=== PATIENT | female | born 1960 | race Caucasian/White ===

== ENCOUNTER 2016-07-02 09:52 | Emergency (ER) | payer MEDICAID, OTHER ==
[~2016-07-02 09:52] MED LIST: ASPI81TA63; PRIL20CA; ZOCO20TA
--- NOTE | 2016-07-02 10:30 | EDDOCDS ---
Physician Documentation [facility] Name: Celestina Serna Age: 56 yrs Sex: Female : 1960 Arrival Date: 07/02/2016 Time: 09:52 Bed Triage 2 Private MD: Geraldine Godfrey Ellen Disposition: 07/02/16 10:22 Discharged to Home/Self Care. Impression: Acute pharyngitis. - Condition is Stable. - Discharge Instructions: Pharyngitis. - Prescriptions for lidocaine HCl 2 % Mucous Membrane solution - take 15 milliliter by ORAL route every 3 hours As needed swish, gargle and spit; 150 milliliter. cefdinir 300 mg Oral Capsule - take 1 capsule by ORAL route every 12 hours; 20 capsule. - Medication Reconciliation form. - Follow up: Geraldine Godfrey; When: Call to arrange an appointment; Reason: Wound/Symptom Recheck, Recheck today's complaints, Worsening of conditions, Continuance of care. - Problem is an ongoing problem. - Symptoms are unchanged. Historical: - Allergies: no known allergies; - Home Meds: 1. calcium citrate 250 mg calcium Oral tab 2. One-A-Day Women's Active 18 mg iron- 400 mcg-180 mg oral tab 3. Vitamin B-6 250 mg Oral tab 4. Magnesium Oxide Oral Unknown daily - PMHx: none; - PSHx: foot surgery; shoulder surgery; gastric bypass (2014); - Social history: Smoking status: Patient states former smoker of tobacco. No barriers to communication noted, The patient speaks fluent Yoruba, Speaks appropriately for age. - : The pt / caregiver states he / she is not on anticoagulants. Home medication list is obtained from the patient. - Exposure Risk Screening:: None identified. Vital Signs: 07/02 09:54 BP 153 / 68; Pulse 69; Resp 16; Temp 97.6(O); Pulse Ox 99% on R/A; Weight 73.48 kg / elp 162 lbs (R); Height 5 ft. 7 in. (170.18 cm) (R); 09:54 Body Mass Index 25.37 (73.48 kg, 170.18 cm) elp MDM: 10:01 Strep Screen, Nursing ordered. cc10 10:19 GATS (NEGATIVE STREP SCREEN) Ordered. EDMS Signatures: Dispatcher MedHost EDMS Becka Jo, RN RN Marylou CovarrubiasRN RN Romulo Ag, ZOILA CUMMINGS cc10 MTDD
--- NOTE | 2016-07-02 10:30 | EDDOCDS ---
Nurse's Notes [facility] Name: Celestina Serna Age: 56 yrs Sex: Female : 1960 Arrival Date: 07/02/2016 Time: 09:52 Bed Triage 2 Private MD: Geraldine Godfrey Ellen Diagnosis: Acute pharyngitis Presentation: 07/02 09:59 Presenting complaint: Patient states: concerned she has strep throat. states spots on pml her throat and red tonsils, sore throat - ongoing for 4 days. Risk factors: Stridor is not present. Drooling is not present. Shortness of breath is not present. Cellulitis is not present. Adult Sepsis Screening: The patient does not have new or worsening altered mentation. Patient's respiratory rate is less than 22. Systolic blood pressure is greater than 100. Patient has a qSOFA score of 0- Negative Sepsis Screen. Suicide/Homicide risk assessment- the patient denies having any suicidal and/or homicidal ideations and does not present with any other emotional, behavioral or mental health complaints. 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 Transition of care: patient was not received from another setting of care. 09:59 Acuity: JUAN Level 4 pml 09:59 Method Of Arrival: Walkin/Carried/Asstd pml Triage Assessment: 10:01 General: Appears in no apparent distress, comfortable. Pain: Location: throat Pain pml currently is 7 out of 10 on a pain scale. HIV screening NA for this visit Offered previously. EENT: Reports pain when swallowing. Historical: - Allergies: no known allergies; - Home Meds: 1. calcium citrate 250 mg calcium Oral tab 2. One-A-Day Women's Active 18 mg iron- 400 mcg-180 mg oral tab 3. Vitamin B-6 250 mg Oral tab 4. Magnesium Oxide Oral Unknown daily - PMHx: none; - PSHx: foot surgery; shoulder surgery; gastric bypass (2014); - Social history: Smoking status: Patient states former smoker of tobacco. No barriers to communication noted, The patient speaks fluent Nepalese, Speaks appropriately for age. - : The pt / caregiver states he / she is not on anticoagulants. Home medication list is obtained from the patient. - Exposure Risk Screening:: None identified. Screenin:28 Screening information is obtained from the patient. Fall risk: No risks identified. jjr Assistance ADL's: requires no assistance with activities of daily living. Abuse/DV Screen: The patient / caregiver reports he/she is: not in a situation that causes fear, pain or injury. Nutritional screening: No deficits noted. Advance Directives: There is no active DNR order. home support is adequate. Assessment: 10:28 General: Appears in no apparent distress, Behavior is appropriate for age. EENT: Throat jjr is reddened. Respiratory: Airway is patent Respiratory effort is even, unlabored, Respiratory pattern is regular. Derm: No deficits noted. Vital Signs: 09:54 BP 153 / 68; Pulse 69; Resp 16; Temp 97.6(O); Pulse Ox 99% on R/A; Weight 73.48 kg (R); elp Height 5 ft. 7 in. (170.18 cm) (R); 09:54 Body Mass Index 25.37 (73.48 kg, 170.18 cm) elp Vitals: 09:54 Log In Time: July 02, 2016 at 09:52. elp 10:19 Strep Screen is obtained and tested: Negative, a GATSNEG culture is ordered in [facility] and sent. ED Course: 09:54 Patient visited by Elisabeth Wilde PCA. elp 09:54 Geraldine Godfrey is Private Physician. elp 09:54 Patient moved to Waiting elp 09:54 Patient moved to Pre RCE elp 09:55 Patient visited by Elisabeth Wilde PCA. elp 10:00 Triage Initiated pml 10:01 Patient visited by Marylou Hart RN. pml 10:02 Romulo [facility] cc10 10:02 Jason Omer MD is Attending Physician. cc10 10:03 Patient moved to Triage 2 pml 10:21 Patient visited by Romulo Navarro PA-C. cc10 10:21 Patient visited by Romulo Navarro PA-C. cc10 10:22 Geraldine Godfrey is Referral Physician. cc10 10:29 The patient / caregiver is instructed regarding the plan of care and ED course. jjr 10:29 No IV's were initiated during this patient's visit. No procedures done that require jjr assistance. Order Results: There are currently no results for this order. Outcome: 10:22 Discharge ordered by Provider. cc10 10:29 Discharge Assessment: patient administered narcotics - no. The following High Risk jjr Discharge criteria are identified: None. Discharged to home ambulatory. Condition: stable. Discharge instructions given to patient, Instructed on discharge instructions, follow up and referral plans. medication usage, Demonstrated understanding of instructions, medications, Prescriptions given X 2. No special radiology studies were completed. Property sent home with patient. 10:29 Patient left the ED. jjr Signatures: Becka Jo, RN RN jjr Marylou Hart,RN RN Elisabeth Kellogg, MEDICAID SERVICE COORDINATOR MEDICAID SERVICE COORDINATOR elp Romulo Navarro, PAKleverC PA-C cc10 MTDD
--- NOTE | 2016-07-04 11:30 | EDDOCDS ---
Physician Documentation [facility] Name: Celestina Serna Age: 56 yrs Sex: Female : 1960 Arrival Date: 07/02/2016 Time: 09:52 Bed Triage 2 Private MD: Geraldine Godfrey Ellen Disposition: 07/02/16 10:22 Discharged to Home/Self Care. Impression: Acute pharyngitis. - Condition is Stable. - Discharge Instructions: Pharyngitis. - Prescriptions for lidocaine HCl 2 % Mucous Membrane solution - take 15 milliliter by ORAL route every 3 hours As needed swish, gargle and spit; 150 milliliter. cefdinir 300 mg Oral Capsule - take 1 capsule by ORAL route every 12 hours; 20 capsule. - Medication Reconciliation form. - Follow up: Geraldine Godfrey; When: Call to arrange an appointment; Reason: Wound/Symptom Recheck, Recheck today's complaints, Worsening of conditions, Continuance of care. - Problem is an ongoing problem. - Symptoms are unchanged. Historical: - Allergies: no known allergies; - Home Meds: 1. calcium citrate 250 mg calcium Oral tab 2. One-A-Day Women's Active 18 mg iron- 400 mcg-180 mg oral tab 3. Vitamin B-6 250 mg Oral tab 4. Magnesium Oxide Oral Unknown daily - PMHx: none; - PSHx: foot surgery; shoulder surgery; gastric bypass (2014); - Social history: Smoking status: Patient states former smoker of tobacco. No barriers to communication noted, The patient speaks fluent Ukrainian, Speaks appropriately for age. - : The pt / caregiver states he / she is not on anticoagulants. Home medication list is obtained from the patient. - Exposure Risk Screening:: None identified. Vital Signs: 07/02 09:54 BP 153 / 68; Pulse 69; Resp 16; Temp 97.6(O); Pulse Ox 99% on R/A; Weight 73.48 kg / elp 162 lbs (R); Height 5 ft. 7 in. (170.18 cm) (R); 09:54 Body Mass Index 25.37 (73.48 kg, 170.18 cm) elp MDM: 10:01 Strep Screen, Nursing ordered. cc10 10:19 GATS (NEGATIVE STREP SCREEN) Ordered. EDMS 10:32 Financial registration complete. mm15 10:32 [facility] Payment Agreement was scanned into MEDHOMessageParty and attached to record. mm15 18:46 T-Sheet-- Draft Copy was scanned into [employer]essageParty and attached to record. klr Signatures: Dispatcher MedHost EDBecka Brooks RN RN jjr Quay, Paulina, RN RN pml McGrath, Marlynn mm15 Romulo Navarro PA-C PAMarychuy cc10 Hayley Peñaloza The chart was reviewed and I authenticate all verbal orders and agree with the evaluation and treatment provided.Attachments: 10:32 [facility] Payment Agreement mm15 18:46 T-Sheet-- Draft Copy klr Chart Complete MTDD
--- NOTE | 2016-07-04 11:30 | EDDOCDS ---
Nurse's Notes [facility] Name: Celestina Serna Age: 56 yrs Sex: Female : 1960 Arrival Date: 07/02/2016 Time: 09:52 Bed Triage 2 Private MD: Geraldine Godfrey Ellen Diagnosis: Acute pharyngitis Presentation: 07/02 09:59 Presenting complaint: Patient states: concerned she has strep throat. states spots on pml her throat and red tonsils, sore throat - ongoing for 4 days. Risk factors: Stridor is not present. Drooling is not present. Shortness of breath is not present. Cellulitis is not present. Adult Sepsis Screening: The patient does not have new or worsening altered mentation. Patient's respiratory rate is less than 22. Systolic blood pressure is greater than 100. Patient has a qSOFA score of 0- Negative Sepsis Screen. Suicide/Homicide risk assessment- the patient denies having any suicidal and/or homicidal ideations and does not present with any other emotional, behavioral or mental health complaints. 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 Transition of care: patient was not received from another setting of care. 09:59 Acuity: JUAN Level 4 pml 09:59 Method Of Arrival: Walkin/Carried/Asstd pml Triage Assessment: 10:01 General: Appears in no apparent distress, comfortable. Pain: Location: throat Pain pml currently is 7 out of 10 on a pain scale. HIV screening NA for this visit Offered previously. EENT: Reports pain when swallowing. Historical: - Allergies: no known allergies; - Home Meds: 1. calcium citrate 250 mg calcium Oral tab 2. One-A-Day Women's Active 18 mg iron- 400 mcg-180 mg oral tab 3. Vitamin B-6 250 mg Oral tab 4. Magnesium Oxide Oral Unknown daily - PMHx: none; - PSHx: foot surgery; shoulder surgery; gastric bypass (2014); - Social history: Smoking status: Patient states former smoker of tobacco. No barriers to communication noted, The patient speaks fluent Togolese, Speaks appropriately for age. - : The pt / caregiver states he / she is not on anticoagulants. Home medication list is obtained from the patient. - Exposure Risk Screening:: None identified. Screenin:28 Screening information is obtained from the patient. Fall risk: No risks identified. jjr Assistance ADL's: requires no assistance with activities of daily living. Abuse/DV Screen: The patient / caregiver reports he/she is: not in a situation that causes fear, pain or injury. Nutritional screening: No deficits noted. Advance Directives: There is no active DNR order. home support is adequate. Assessment: 10:28 General: Appears in no apparent distress, Behavior is appropriate for age. EENT: Throat jjr is reddened. Respiratory: Airway is patent Respiratory effort is even, unlabored, Respiratory pattern is regular. Derm: No deficits noted. Vital Signs: 09:54 BP 153 / 68; Pulse 69; Resp 16; Temp 97.6(O); Pulse Ox 99% on R/A; Weight 73.48 kg (R); elp Height 5 ft. 7 in. (170.18 cm) (R); 09:54 Body Mass Index 25.37 (73.48 kg, 170.18 cm) elp Vitals: 09:54 Log In Time: July 02, 2016 at 09:52. elp 10:19 Strep Screen is obtained and tested: Negative, a GATSNEG culture is ordered in [facility] and sent. ED Course: 09:54 Patient visited by Elisabeth Wilde PCA. elp 09:54 Geraldine Godfrey is Private Physician. elp 09:54 Patient moved to Waiting elp 09:54 Patient moved to Pre RCE elp 09:55 Patient visited by Elisabeth Wilde PCA. elp 10:00 Triage Initiated pml 10:01 Patient visited by Marylou Hart RN. pml 10:02 [facility] cc[facility] 10:02 Jason Omer MD is Attending Physician. cc10 10:03 Patient moved to Triage 2 pml 10:21 Patient visited by Romulo Navarro PA-C. cc10 10:21 Patient visited by Romulo Navarro PA-C. cc10 10:22 Geraldine Godfrey is Referral Physician. cc10 10:29 The patient / caregiver is instructed regarding the plan of care and ED course. jjr 10:29 No IV's were initiated during this patient's visit. No procedures done that require jjr assistance. 10:32 [facility] Payment Agreement was scanned into HEXIO and attached to record. mm15 18:46 T-Sheet-- Draft Copy was scanned into HEXIO and attached to record. klmami Order Results: Lab Order: GATS (NEGATIVE STREP SCREEN); SPEC'M 07/02/16 10:00 Test: GATS CULTURE (NEG STREP SCR); Value: GATS RESULT NEGATIVE FOR STREP PYOGENES (GROUP A); Status: F Test: GATS CULTURE (NEG STREP SCR); Value: <EXTERNAL COMMENT eCWMed> FULL REPORT IN LAB NOTES (eCW and Medent).; Status: F Outcome: 10:22 Discharge ordered by Provider. cc10 10:29 Discharge Assessment: patient administered narcotics - no. The following High Risk jjr Discharge criteria are identified: None. Discharged to home ambulatory. Condition: stable. Discharge instructions given to patient, Instructed on discharge instructions, follow up and referral plans. medication usage, Demonstrated understanding of instructions, medications, Prescriptions given X 2. No special radiology studies were completed. Property sent home with patient. 10:29 Patient left the ED. jjr Signatures: Becka Jo, RN RN Marylou Covarrubias,RN RN Crystal Lujan mm15 Patchsaritha, Elisabeth, READY TO WEAR DEPARTMENT MANAGER READY TO WEAR DEPARTMENT MANAGER elp Romulo Navarro PA-C PA-C cc10 Hayley Peñaloza Chart Complete MTDD
--- NOTE | 2016-07-04 11:30 | EDDOCDS ---
Physician Documentation [facility] Name: Celestina Serna Age: 56 yrs Sex: Female : 1960 Arrival Date: 07/02/2016 Time: 09:52 Bed Triage 2 Private MD: Geraldine Godfrey Ellen Disposition: 07/02/16 10:22 Discharged to Home/Self Care. Impression: Acute pharyngitis. - Condition is Stable. - Discharge Instructions: Pharyngitis. - Prescriptions for lidocaine HCl 2 % Mucous Membrane solution - take 15 milliliter by ORAL route every 3 hours As needed swish, gargle and spit; 150 milliliter. cefdinir 300 mg Oral Capsule - take 1 capsule by ORAL route every 12 hours; 20 capsule. - Medication Reconciliation form. - Follow up: Geraldine Godfrey; When: Call to arrange an appointment; Reason: Wound/Symptom Recheck, Recheck today's complaints, Worsening of conditions, Continuance of care. - Problem is an ongoing problem. - Symptoms are unchanged. Historical: - Allergies: no known allergies; - Home Meds: 1. calcium citrate 250 mg calcium Oral tab 2. One-A-Day Women's Active 18 mg iron- 400 mcg-180 mg oral tab 3. Vitamin B-6 250 mg Oral tab 4. Magnesium Oxide Oral Unknown daily - PMHx: none; - PSHx: foot surgery; shoulder surgery; gastric bypass (2014); - Social history: Smoking status: Patient states former smoker of tobacco. No barriers to communication noted, The patient speaks fluent Albanian, Speaks appropriately for age. - : The pt / caregiver states he / she is not on anticoagulants. Home medication list is obtained from the patient. - Exposure Risk Screening:: None identified. Vital Signs: 07/02 09:54 BP 153 / 68; Pulse 69; Resp 16; Temp 97.6(O); Pulse Ox 99% on R/A; Weight 73.48 kg / elp 162 lbs (R); Height 5 ft. 7 in. (170.18 cm) (R); 09:54 Body Mass Index 25.37 (73.48 kg, 170.18 cm) elp MDM: 10:01 Strep Screen, Nursing ordered. cc10 10:19 GATS (NEGATIVE STREP SCREEN) Ordered. EDMS 10:32 Financial registration complete. mm15 10:32 [facility] Payment Agreement was scanned into MEDHOContextool and attached to record. mm15 18:46 T-Sheet-- Draft Copy was scanned into MEDHOContextool and attached to record. klr Signatures: Dispatcher MedHost EDBecka Brooks RN RN jjr Quay, Paulina, RN RN pml McGrath, Marlynn mm15 Romulo Navarro PA-C PAMarychuy cc10 Hayley Peñaloza The chart was reviewed and I authenticate all verbal orders and agree with the evaluation and treatment provided.Attachments: 10:32 [facility] Payment Agreement mm15 18:46 T-Sheet-- Draft Copy klr Chart Complete MTDD
== END 2016-07-02 10:29 | disposition home or self-care (01) ==
LOC: M ED 09:52
DX: J02.0 Streptococcal pharyngitis (principal); Z20.818 Contact with and (suspected) exposure to other bacterial communicable diseases; Z98.84 Bariatric surgery status; Z79.899 Other long term (current) drug therapy; Z87.891 Personal history of nicotine dependence

== ENCOUNTER → 2016-07-26 | Outpatient (CLI) | payer OTHER ==
--- NOTE | 2016-07-26 10:18 | REP ---
Lumbar spine series: Five views. History: Radiculopathy in the lumbar region. Findings: There are clips in right upper quadrant of the abdomen consistent with previous cholecystectomy. Lumbar vertebral body heights are preserved. There is degenerative disc narrowing at the L3-4 intervertebral disc with discogenic spurring. Mild discogenic spurring is seen in 4-5 and 2-3 as well. This is essentially unchanged from the comparison radiographs of September 08, 2008. Pedicles and posterior elements are intact. There is facet joint narrowing bilaterally at L4-5. There is no evidence of spondylolysis or spondylolisthesis. Sacrum and SI joints are intact. Psoas margins are symmetric. There are surgical sutures in the left upper quadrant of the abdomen. Tubal ligation bands are visible in the pelvis. Impression: Mild degenerative spondylosis changes L3-4 and L4-5 as above. No significant change from 2008. Signed by Abram Veliz MD 07/26/2016 12:25 P
== END ==
LOC: M RAD 09:42
PROVIDERS: ATTEND Nurse Practitioner Family
DX: M47.816 Spondylosis without myelopathy or radiculopathy, lumbar region (principal)

== ENCOUNTER 2016-09-04 09:43 | Emergency (ER) | payer OTHER ==
[~2016-09-04] VITALS: Ht 170.2 cm; Wt 72.6 kg
[2016-09-04] MEDS ORDERED: ACETAMINOPHEN-COD (09:55)
--- NOTE | 2016-09-04 11:16 | REP ---
Cervical spine series: Seven views. History: Chronic neck pain. Comparison study: June 13, 2010. Findings: Lateral views done in flexion/extension and neutral position show some limitation of flexion/extension range of motion and some straightening. Cervical vertebral body heights are preserved. Alignment is normal. There is discogenic spurring anteriorly at C4-5, C5-6, and C6-7. This is more pronounced than on 2011 prior study. No subluxation or instability is seen. Open mouth odontoid view is unremarkable. AP view shows mild osteoarthritic facet hypertrophy in the mid cervical spine bilaterally. Oblique radiographs demonstrate uncovertebral spurring on the left at C3-4 and C5-6 and C6-7. On the right, uncovertebral spurring produces neural foraminal encroachment at C4-5 and C5-6. Impression: Degenerative spondylosis changes more pronounced than on the prior study from 2010. No acute bony abnormality. Signed by Abram Veliz MD 09/04/2016 12:09 P
[2016-09-04 11:18] VITALS: BP 134/89
[2016-09-04] MEDS ORDERED: NAPR500T PO (11:18)
[2016-09-04] MEDS ORDERED: VALI5TAB PO (11:18)
[2016-09-04] MEDS ORDERED: TYLETAB14 PO (11:31)
== END 2016-09-04 11:59 | disposition home or self-care (01) ==
LOC: M ED 10:37
DX: M54.2 Cervicalgia (principal); G89.29 Other chronic pain; M19.90 Unspecified osteoarthritis, unspecified site

== ENCOUNTER 2017-02-02 11:52 | Emergency (ER) | payer OTHER ==
[~2017-02-02] VITALS: Ht 170.2 cm; Wt 75.0 kg
[~2017-02-02 11:52] MED LIST changes: +ACETAMINOPHEN-COD; +NAPR500T PO; +TYLETAB14 PO; +VALI5TAB PO
[2017-02-02] MEDS ORDERED: VITA500S3 SL (11:57)
[2017-02-02] MEDS ORDERED: MULT1TAB10 PO (11:58)
[2017-02-02] MEDS ORDERED: NS 500 ML IV ONE (12:30)
[2017-02-02] MEDS: ONDANSETRON 4MG/2ML VIAL (J2405) IV ONE ×2 (12:32→12:38)
[2017-02-02 13:11] LABS: BASO % 0.5 % (0.0-1.0); EOS # 0.1 K/mm3 (0.0-0.50); EOS % 2.2 % (0.0-3.0); LARGE UNSTAINED CELL # 0.2 K/mm3 (0.0-0.4); LARGE UNSTAINED CELL % 2.3 % (0.0-4.0); LYMPH # 1.5 K/mm3 (1.5-4.5); MEAN CORPUSCULAR HEMOGLOBIN 31.2 pg (27.0-33.0); MEAN CORPUSCULAR HGB CONC 33.2 g/dl (32.0-36.5); MONO # 0.4 K/mm3 (0.0-0.8); MONO % 5.8 % (0.0-5.0); NEUTROPHILS # 4.2 K/mm3 (1.8-7.7); NEUTROPHILS % 67.2 % (36.0-66.0); PLATELET COUNT, AUTOMATED 220 k/mm3 (150-450); RED CELL DISTRIBUTION WIDTH 12.5 % (11.5-14.5); WHITE BLOOD COUNT 6.3 K/mm3 (4.0-10.0)
[2017-02-02 13:16] LABS: ALBUMIN 3.7 GM/DL (3.2-5.2); ALBUMIN/GLOBULIN RATIO 1.32 (1.00-1.93); ALKALINE PHOSPHATASE 67 U/L (45-117); ALT/SGPT 28 U/L (12-78); AMYLASE 63 U/L (25-115); ANION GAP 8 MEQ/L (8-16); AST/SGOT 19 U/L (15-37); BILIRUBIN,DIRECT < 0.1 MG/DL (0.0-0.2); BILIRUBIN,TOTAL 0.4 MG/DL (0.2-1.0); BLOOD UREA NITROGEN 13 MG/DL (7-18); CALCIUM LEVEL 8.2 MG/DL (8.5-10.1); CARBON DIOXIDE LEVEL 29 MEQ/L (21-32); CHLORIDE LEVEL 109 MEQ/L (98-107); CREATININE FOR GFR 0.65 MG/DL (0.55-1.02); GLOMERULAR FILTRATION RATE > 60.0 (>51); GLUCOSE, FASTING 97 MG/DL (70-105); POTASSIUM SERUM 3.7 MEQ/L (3.5-5.1); SODIUM LEVEL 146 MEQ/L (136-145); TOTAL PROTEIN 6.5 GM/DL (6.4-8.2)
[2017-02-02] MEDS ORDERED: ISOVUE-370 76% 100ML VIAL (Q9967) As Ordered ONE (13:20)
--- NOTE | 2017-02-02 13:51 | REP ---
Clinical: Acute right-sided abdominal pain. Technique: Axial contrast enhanced images from the lung bases to the pubic symphysis using 100 ml Isovue 370 intravenous contrast material with coronal and sagittal re-formations. Comparison: 08/05/2015. Findings: Lung bases are clear. Visualized heart and pericardium normal. Liver, spleen, pancreas, bilateral adrenal glands and kidneys are relatively normal / stable. Few small hepatic cysts remain stable and measure up to 9 mm. The kidneys again demonstrate bilateral parapelvic cysts which are unchanged. The enteric system is without obstruction or acute inflammatory process. A small hiatal hernia is identified at the gastroesophageal junction along with evidence for prior gastric bypass surgery. Normal terminal ileum and appendix are identified in the right lower quadrant. Sigmoid diverticula noted without acute diverticulitis. The pelvis demonstrates partially collapsed normal bladder and age-appropriate uterus/adnexa. A 4.7 cm left adnexal cyst is again identified and unchanged. A small amount of free fluid is noted in the pelvis which is nonspecific and possibly physiologic. No free air. No adenopathy. Vasculature is normal. Impression: 1. 4.7 cm left adnexal cyst is again identified and unchanged compared to 2016. Findings may warrant gynecology consultation. A small amount of free fluid is also identified in the pelvis which may be related to menstrual cycle. 2. Small hepatic cysts and moderate bilateral parapelvic cysts remain stable and appear benign. 3. Small hiatal hernia. 4. Scattered sigmoid diverticula without acute diverticulitis. 5. No further acute abdominopelvic pathology appreciated. Signed by Sea Royal MD 02/02/2017 01:42 P
[2017-02-02] MEDS ORDERED: MORPHINE 4 MG/ML 1ML SYRINGE IV ONE (14:00)
[2017-02-02] MEDS ORDERED: GI COCKTAIL 50ML BTL(HYOSCYAMINE/MAALOX/LIDOCAINE VISCOUS)(1:3:1) PO ONE (14:00)
[2017-02-02] MEDS ORDERED: SUCR1SS PO (14:17)
[2017-02-02] MEDS ORDERED: PRIL20CA9 PO (14:17)
[2017-02-02 14:23] VITALS: BP 166/76
--- NOTE | 2017-02-04 08:40 | ED PDOC ---
Post-Departure Follow-Up radiology report faxed to Lizzeth Smith MD Feb 04, 2017 08:40
== END 2017-02-02 14:24 | disposition home or self-care (01) ==
LOC: M ED 11:52
DX: K29.00 Acute gastritis without bleeding (principal); E27.8 Other specified disorders of adrenal gland; K57.92 Diverticulitis of intestine, part unspecified, without perforation or abscess without bleeding; Z87.891 Personal history of nicotine dependence
CPT/HCPCS: 74177; 80048; 80076; 81001; 82150; 83690; 85025; 96361; 96374; 99283; J2405; Q9967

== ENCOUNTER 2017-03-05 11:02 | Emergency (ER) | payer OTHER ==
[~2017-03-05] VITALS: Ht 170.2 cm; Wt 75.0 kg
[~2017-03-05 11:02] MED LIST changes: +MULT1TAB10 PO; +PRIL20CA9 PO; +SUCR1SS PO; +VITA500S3 SL
[2017-03-05] MEDS ORDERED: MISO200T56 PO (11:37)
[2017-03-05] MEDS ORDERED: TYLE325T5 PO (11:37)
[2017-03-05] MEDS ORDERED: VALA500T2 PO (11:37)
--- NOTE | 2017-03-05 14:53 | REP ---
CERVICAL SPINE: Limited AP and lateral views of cervical spine performed with three total views obtained. No definite fracture is seen on this limited series. Vertebral bodies are normal in height and are well aligned with normal cervical lordosis. There is no prevertebral soft tissue swelling. There is mild spurring of C4 with more moderate degree of spurring of C5 through C7. There is mild disc space narrowing at virtually all levels with a more moderate degree of disc space narrowing at C6-7. There is diffuse sclerosis and narrowing of the posterior facet joints. There is also facet spurring bilaterally. IMPRESSION: Degenerative changes with no gross fracture. Signed by Quincy Zamarripa MD 03/06/2017 07:55 P
[2017-03-05] MEDS ORDERED: ROBA500T PO (15:04)
[2017-03-05 15:17] VITALS: BP 149/69
== END 2017-03-05 15:18 | disposition home or self-care (01) ==
LOC: M ED 11:02
DX: M50.30 Other cervical disc degeneration, unspecified cervical region (principal); I10 Essential (primary) hypertension; G89.29 Other chronic pain; Z79.899 Other long term (current) drug therapy

== ENCOUNTER 2017-03-07 21:59 | Emergency (ER) | payer OTHER ==
[~2017-03-07] VITALS: Ht 170.2 cm; Wt 78.6 kg
[~2017-03-07 21:59] MED LIST changes: +MISO200T56 PO; +ROBA500T PO; +TYLE325T5 PO; +VALA500T2 PO
[2017-03-07 22:00] VITALS: BP 147/66
[2017-03-07] MEDS ORDERED: OMEP40CA2 PO (22:13)
== END 2017-03-07 23:45 | disposition left against medical advice (07) ==
LOC: M ED 21:59
DX: M54.2 Cervicalgia (principal); Z53.21 Procedure and treatment not carried out due to patient leaving prior to being seen by health care provider

== ENCOUNTER 2017-05-08 13:25 | Emergency (ER) | payer OTHER ==
[~2017-05-08] VITALS: Ht 170.2 cm; Wt 75.0 kg
[2017-05-08 13:25] VITALS: BP 132/61
[~2017-05-08 13:25] MED LIST changes: +OMEP40CA2 PO
[2017-05-08] MEDS ORDERED: GABA-279 (13:32)
[2017-05-08] MEDS ORDERED: ZANT300T PO (14:06)
[2017-05-08] MEDS ORDERED: CEFD1CAP8 PO (14:06)
[2017-05-08] MEDS ORDERED: CYCL10TA PO (14:06)
--- NOTE | 2017-05-08 18:44 | ECGEPIP ---
Stationary ECG Study [facility] - ED Test Date: 2017-05-08 Pat Name: TYE WARE Department: Room: - Gender: F Ux Architect: ct : 1960 Requested By: JERARDO SHERMAN PA-C. Order Number: [id number] Reading MD: Lizzeth White Measurements Intervals [place] Rate: 67 P: 52 HI: 133 QRS: 38 QRSD: 100 T: 39 QT: 382 QTc: 405 Interpretive Statements SINUS RHYTHM LOW VOLTAGE LIMB NSTTW ABNORMALITY SIMILAR 03/30/14 Electronically Signed On 05-08-2017 18:44:18 EST by Lizzeth White
== END 2017-05-08 14:43 | disposition home or self-care (01) ==
LOC: M ED 13:25
DX: J32.9 Chronic sinusitis, unspecified (principal); M54.9 Dorsalgia, unspecified; K21.9 Gastro-esophageal reflux disease without esophagitis; I10 Essential (primary) hypertension; B00.9 Herpesviral infection, unspecified; M50.90 Cervical disc disorder, unspecified, unspecified cervical region; Z79.899 Other long term (current) drug therapy

== ENCOUNTER → 2017-05-28 | Outpatient (REF) | payer OTHER, MEDICAID ==
[2017-05-28 15:08] LABS: LDH LACTATE DEHYDROGENASE 205 U/L (84-246)
[2017-05-29 07:15] LABS: CARCINOEMBRYONIC ANTIGEN 2.7 NG/ML (<2.5)
[2017-05-29 07:44] LABS: CA 125 11.9 U/ML (<30.2)
[2017-05-29 07:45] LABS: CA19-9 TUMOR MARKER,CARBOHYDRA 73.3 U/ML (<35.0)
[2017-06-01 00:06] LABS: INHIBIN B <7.0 pg/mL (0.0-16.9)
== END ==
LOC: M LABDRAW1 13:29
DX: D39.12 Neoplasm of uncertain behavior of left ovary (principal)
CPT/HCPCS: 82378

== ENCOUNTER → 2017-08-10 | Outpatient (CLI) | payer OTHER ==
[2017-08-10 12:02] LABS: BASO % 1.1 % (0.0-1.0); EOS # 0.2 10^3/uL (0.0-0.50); EOS % 5.9 % (0.0-3.0); HEMATOCRIT 39.2 % (36.0-47.0); HEMOGLOBIN 13.2 g/dl (12.0-16.0); LYMPH # 1.6 10^3/uL (1.5-4.5); LYMPH % 42.5 % (24.0-44.0); MEAN CORPUSCULAR HEMOGLOBIN 31.1 pg (27.0-33.0); MEAN CORPUSCULAR HGB CONC 33.7 g/dl (32.0-36.5); MEAN CORPUSCULAR VOLUME 92.2 fl (80.0-96.0); MONO # 0.3 10^3/uL (0.0-0.8); MONO % 8.3 % (0.0-5.0); NEUTROPHILS # 1.6 10^3/uL (1.8-7.7); NEUTROPHILS % 42.2 % (36.0-66.0); PLATELET COUNT, AUTOMATED 224 10^3/uL (150-450); RED BLOOD COUNT 4.25 10^6/uL (4.00-5.40); RED CELL DISTRIBUTION WIDTH 12.8 % (11.5-14.5); WHITE BLOOD COUNT 3.7 10^3/uL (4.0-10.0)
[2017-08-10 12:29] LABS: ALBUMIN 3.7 GM/DL (3.2-5.2); ALBUMIN/GLOBULIN RATIO 1.28 (1.00-1.93); ALKALINE PHOSPHATASE 78 U/L (45-117); ALT/SGPT 38 U/L (12-78); ANION GAP 7 MEQ/L (8-16); AST/SGOT 28 U/L (7-37); BILIRUBIN,TOTAL 0.6 MG/DL (0.2-1.0); BLOOD UREA NITROGEN 10 MG/DL (7-18); C REACTIVE PROTEIN QUANTITATIV < 0.30 MG/DL (0.00-0.30); CALCIUM LEVEL 8.6 MG/DL (8.5-10.1); CARBON DIOXIDE LEVEL 28 MEQ/L (21-32); CHLORIDE LEVEL 107 MEQ/L (98-107); CHOLESTEROL LEVEL 204 MG/DL (<200); CHOLESTEROL RISK RATIO 4.163 (<5); CREATININE FOR GFR 0.72 MG/DL (0.55-1.30); GLOMERULAR FILTRATION RATE > 60.0 (>51); GLUCOSE, FASTING 93 MG/DL (70-100); HDL CHOLESTEROL 49 MG/DL (>40); LDL CHOLESTEROL 106.4 MG/DL (<100); MAGNESIUM LEVEL 2.2 MG/DL (1.8-2.4); NON-HDL-C 155 MG/DL; POTASSIUM SERUM 3.9 MEQ/L (3.5-5.1); RHEUMATOID FACTOR QUANT < 10.0 IU/ML (<15.0); SODIUM LEVEL 142 MEQ/L (136-145); TOTAL 25(OH) VITAMIN D 24.6 NG/ML (30.0-100.0); TOTAL PROTEIN 6.6 GM/DL (6.4-8.2); TRIGLYCERIDES LEVEL 243 MG/DL (<150); URIC ACID 4.3 MG/DL (2.6-6.0)
[2017-08-10 12:31] LABS: VITAMIN B12 LEVEL 1019 PG/ML (247-911)
[2017-08-10 12:41] LABS: HEPATITIS B SURFACE ANTIGEN NEGATIVE (NEGATIVE)
[2017-08-10 12:48] LABS: ERYTHROCYTE SEDIMENTATION RATE 9 mm/hr (0-30)
[2017-08-10 13:07] LABS: HEPATITIS C VIRUS ABY INDEX 0.1 INDEX (<0.8)
[2017-08-10 13:08] LABS: HEPATITIS B CORE ANTIBODY IGM NEGATIVE (NEGATIVE)
[2017-08-10 13:09] LABS: HIV 1&2 SCREEN CENTAUR NEGATIVE (NEGATIVE)
[2017-08-10 13:10] LABS: HEPATITIS A ANTIBODY IGM NEGATIVE (NEGATIVE)
== END ==
LOC: M LAB 10:53
DX: Z12.31 Encounter for screening mammogram for malignant neoplasm of breast (principal); Z78.0 Asymptomatic menopausal state; Z92.0 Personal history of contraception
CPT/HCPCS: 77067

== ENCOUNTER → 2017-08-10 | Outpatient (CLI) | payer OTHER | LOC: M RAD 11:29 | DX: D39.12 Neoplasm of uncertain behavior of left ovary (principal) | CPT/HCPCS: 76856 ==

== ENCOUNTER → 2017-08-20 | Outpatient (CLI) | payer OTHER ==
[2017-08-20 13:12] LABS: LDH LACTATE DEHYDROGENASE 209 U/L (84-246)
[2017-08-21 11:11] LABS: CARCINOEMBRYONIC ANTIGEN 3.1 NG/ML (<2.5)
[2017-08-21 11:39] LABS: CA 125 8.7 U/ML (<30.2)
[2017-08-24 00:06] LABS: INHIBIN B <7.0 pg/mL (0.0-16.9)
== END ==
LOC: M LAB 11:22
DX: D39.12 Neoplasm of uncertain behavior of left ovary (principal)
CPT/HCPCS: 82378

== ENCOUNTER 2017-09-22 19:26 | Emergency (ER) | payer OTHER | END 2017-09-22 20:51 | disposition left against medical advice (07) | LOC: M ED 19:26 | DX: Z53.29 Procedure and treatment not carried out because of patient's decision for other reasons (principal) ==

== ENCOUNTER → 2017-10-29 | Outpatient (CLI) | payer OTHER ==
[~2017-10-29] MED LIST changes: -ACETAMINOPHEN-COD; -ASPI81TA63; +GASTROGRAFIN SOLUTION 30ML (Q9963) As Ordered; +ISOVUE-370 76% 100ML VIAL (Q9967) As Ordered; -MISO200T56 PO; -MULT1TAB10 PO; -NAPR500T PO; -OMEP40CA2 PO; -PRIL20CA; -PRIL20CA9 PO; -ROBA500T PO; -SUCR1SS PO; -TYLE325T5 PO; -TYLETAB14 PO; -VALA500T2 PO; -VALI5TAB PO; -VITA500S3 SL; -ZOCO20TA
== END ==
LOC: M RAD 13:08
DX: R10.812 Left upper quadrant abdominal tenderness (principal); R11.10 Vomiting, unspecified; R14.0 Abdominal distension (gaseous)
CPT/HCPCS: Q9963

== ENCOUNTER → 2017-11-07 | Outpatient (CLI) | payer OTHER ==
[2017-11-07 10:43] LABS: BASO # 0.1 10^3/uL (0.0-0.2); BASO % 0.8 % (0.0-1.0); EOS # 0.2 10^3/uL (0.0-0.50); EOS % 2.8 % (0.0-3.0); HEMATOCRIT 40.8 % (36.0-47.0); HEMOGLOBIN 13.5 g/dl (12.0-15.5); IMMATURE GRANULOCYTE % 0.2 % (0-3.0); LYMPH # 1.2 10^3/uL (1.5-4.5); LYMPH % 18.9 % (24.0-44.0); MEAN CORPUSCULAR HEMOGLOBIN 31.3 pg (27.0-33.0); MEAN CORPUSCULAR HGB CONC 33.1 g/dl (32.0-36.5); MEAN CORPUSCULAR VOLUME 94.7 fl (80.0-96.0); MONO # 0.4 10^3/uL (0.0-0.8); NEUTROPHILS # 4.6 10^3/uL (1.8-7.7); NEUTROPHILS % 71.3 % (36.0-66.0); PLATELET COUNT, AUTOMATED 209 10^3/uL (150-450); RED BLOOD COUNT 4.31 10^6/uL (4.00-5.40); WHITE BLOOD COUNT 6.5 10^3/uL (4.0-10.0)
[2017-11-07 11:04] LABS: FERRITIN 28 NG/ML (8-252); IRON (FE) 127 UG/DL (50-170); PERCENT SATURATION 34.4 % (13.2-45.0); TOTAL IRON BINDING CAPACITY 369 UG/DL (250-450)
== END ==
LOC: M LAB 10:15
DX: R19.7 Diarrhea, unspecified (principal)
CPT/HCPCS: 83550

== ENCOUNTER 2017-11-12 08:54 | Day surgery (SDC) | payer OTHER ==
[2017-11-12] MEDS: NS 1,000 ML IV (09:15)
[2017-11-12] MEDS ORDERED: LIDOCAINE 2% INJ 100 MG/5 ML SDV (FOR ANES.) As Ordered (10:05)
[2017-11-12] MEDS ORDERED: PROPOFOL 200 MG/20 ML VIAL As Ordered ×4 (10:05→10:45)
== END 2017-11-12 11:32 | disposition home or self-care (01) ==
LOC: M OPP 08:54
DX: K92.1 Melena (principal); R10.9 Unspecified abdominal pain; R19.7 Diarrhea, unspecified; K57.30 Diverticulosis of large intestine without perforation or abscess without bleeding; K64.8 Other hemorrhoids; R12 Heartburn; K21.0 Gastro-esophageal reflux disease with esophagitis; Z98.84 Bariatric surgery status; Z98.0 Intestinal bypass and anastomosis status; M19.90 Unspecified osteoarthritis, unspecified site; Z79.899 Other long term (current) drug therapy
CPT/HCPCS: 45380

== ENCOUNTER 2017-12-18 17:32 | Emergency (ER) | payer OTHER ==
[2017-12-18] MEDS: ONDANSETRON 4MG/2ML VIAL (J2405) IV (19:00)
[2017-12-18] MEDS: MECLIZINE 25 MG TABLET PO (19:00)
[2017-12-18] MEDS: NS 1,000 ML IV (19:00)
[2017-12-18 19:12] LABS: BASO # 0.1 10^3/uL (0.0-0.2); EOS # 0.2 10^3/uL (0.0-0.50); EOS % 4.2 % (0.0-3.0); HEMATOCRIT 36.4 % (36.0-47.0); HEMOGLOBIN 12.6 g/dl (12.0-15.5); IMMATURE GRANULOCYTE % 0.2 % (0-3.0); LYMPH # 1.7 10^3/uL (1.5-4.5); LYMPH % 34.3 % (24.0-44.0); MEAN CORPUSCULAR HEMOGLOBIN 31.9 pg (27.0-33.0); MEAN CORPUSCULAR HGB CONC 34.6 g/dl (32.0-36.5); MEAN CORPUSCULAR VOLUME 92.2 fl (80.0-96.0); MONO # 0.4 10^3/uL (0.0-0.8); MONO % 8.6 % (0.0-5.0); NEUTROPHILS # 2.6 10^3/uL (1.8-7.7); NEUTROPHILS % 51.7 % (36.0-66.0); PLATELET COUNT, AUTOMATED 231 10^3/uL (150-450); RED BLOOD COUNT 3.95 10^6/uL (4.00-5.40); RED CELL DISTRIBUTION WIDTH 12.6 % (11.5-14.5)
[2017-12-18 19:40] LABS: KETONE, URINE AUTO RFX NEGATIVE (NEGATIVE); LEUKOCYTE ESTERASE UR AUTO RFX NEGATIVE (NEGATIVE); NITRITE, URINE AUTO RFX NEGATIVE (NEGATIVE); RBC, URINE AUTO RFX 0 /HPF (0-3); SQUAM EPITHELIAL CELL UR AURFX 0 /HPF (0-6); WBC, URINE AUTO RFX 0 /HPF (0-3)
[2017-12-18 19:43] LABS: ALBUMIN 3.5 GM/DL (3.2-5.2); ALBUMIN/GLOBULIN RATIO 1.09 (1.00-1.93); ALKALINE PHOSPHATASE 73 U/L (45-117); ALT/SGPT 29 U/L (12-78); ANION GAP 9 MEQ/L (8-16); AST/SGOT 25 U/L (7-37); BILIRUBIN,DIRECT < 0.1 MG/DL (0.0-0.2); BILIRUBIN,TOTAL 0.3 MG/DL (0.2-1.0); BLOOD UREA NITROGEN 12 MG/DL (7-18); CALCIUM LEVEL 8.2 MG/DL (8.5-10.1); CARBON DIOXIDE LEVEL 28 MEQ/L (21-32); CHLORIDE LEVEL 107 MEQ/L (98-107); CPK CREATINE PHOSPHOKINASE 144 U/L (26-192); CREATININE FOR GFR 0.71 MG/DL (0.55-1.30); ETHYL ALCOHOL (ETHANOL) < 0.003 % (0.000-0.010); GLOMERULAR FILTRATION RATE > 60.0 (>51); GLUCOSE, FASTING 98 MG/DL (70-100); POTASSIUM SERUM 3.6 MEQ/L (3.5-5.1); SALICYLATE LEVEL < 1.7 MG/DL (5.0-30.0); SODIUM LEVEL 144 MEQ/L (136-145); TOTAL PROTEIN 6.7 GM/DL (6.4-8.2); TROPONIN I < 0.02 NG/ML (< 0.10)
[2017-12-18 19:44] LABS: ACETAMINOPHEN LEVEL < 2.0 UG/ML (10.0-30.0)
[2017-12-18 19:49] LABS: CK-MB VALUE MASS 1.4 NG/ML (<3.6); MB/CK RELATIVE INDEX 0.97 (< OR =4)
[2017-12-18 19:57] LABS: AMMONIA 45 uMOL/L (<32)
[2017-12-18 20:01] LABS: LACTIC ACID SEPSIS PROTOCOL 0.8 MMOL/L (0.4-2.0)
[2017-12-18 20:21] LABS: AMPHETAMINES LEVEL URINE NEGATIVE (NEGATIVE); BARBITURATES URINE NEGATIVE (NEGATIVE); BENZODIAZEPINES URINE NEGATIVE (NEGATIVE); CANNABINOIDS URINE NEGATIVE (NEGATIVE); COCAINE METABOLITE URINE NEGATIVE (NEGATIVE); METHADONE URINE NEGATIVE (NEGATIVE); OPIATES URINE NEGATIVE (NEGATIVE); PHENCYCLIDINE URINE NEGATIVE (NEGATIVE)
== END 2017-12-18 23:25 | disposition home or self-care (01) ==
LOC: M ED 17:32
DX: R90.82 White matter disease, unspecified (principal); R42 Dizziness and giddiness; R11.2 Nausea with vomiting, unspecified; I11.9 Hypertensive heart disease without heart failure; K21.9 Gastro-esophageal reflux disease without esophagitis; Z88.8 Allergy status to other drugs, medicaments and biological substances; Z79.899 Other long term (current) drug therapy; Z98.84 Bariatric surgery status
CPT/HCPCS: J2405

== ENCOUNTER → 2017-12-26 | Outpatient (CLI) | payer OTHER ==
[2017-12-26 09:24] LABS: EOS # 0.2 10^3/uL (0.0-0.50); EOS % 3.7 % (0.0-3.0); HEMATOCRIT 38.1 % (36.0-47.0); HEMOGLOBIN 13.2 g/dl (12.0-15.5); IMMATURE GRANULOCYTE % 0.2 % (0-3.0); LYMPH # 1.4 10^3/uL (1.5-4.5); LYMPH % 35.9 % (24.0-44.0); MEAN CORPUSCULAR HGB CONC 34.6 g/dl (32.0-36.5); MEAN CORPUSCULAR VOLUME 92.3 fl (80.0-96.0); MONO # 0.3 10^3/uL (0.0-0.8); MONO % 8.2 % (0.0-5.0); PLATELET COUNT, AUTOMATED 237 10^3/uL (150-450); RED BLOOD COUNT 4.13 10^6/uL (4.00-5.40); RED CELL DISTRIBUTION WIDTH 12.6 % (11.5-14.5); RETIC HEMOGLOBIN EQUIVALENT 35.8 pg (24-36); RETICULOCYTE # 59.5 10^9/L (17-77); RETICULOCYTE % 1.4 % (0.5-1.5)
[2017-12-26 09:52] LABS: ALBUMIN 3.5 GM/DL (3.2-5.2); ALBUMIN/GLOBULIN RATIO 1.25 (1.00-1.93); ALKALINE PHOSPHATASE 68 U/L (45-117); ALT/SGPT 31 U/L (12-78); ANION GAP 8 MEQ/L (8-16); AST/SGOT 21 U/L (7-37); BILIRUBIN,TOTAL 0.6 MG/DL (0.2-1.0); BLOOD UREA NITROGEN 12 MG/DL (7-18); C REACTIVE PROTEIN QUANTITATIV < 0.30 MG/DL (0.00-0.30); CALCIUM LEVEL 8.7 MG/DL (8.5-10.1); CARBON DIOXIDE LEVEL 28 MEQ/L (21-32); CHLORIDE LEVEL 108 MEQ/L (98-107); CHOLESTEROL LEVEL 226 MG/DL (<200); CHOLESTEROL RISK RATIO 4.346 (<5); CREATININE FOR GFR 0.77 MG/DL (0.55-1.30); FERRITIN 29 NG/ML (8-252); GLOMERULAR FILTRATION RATE > 60.0 (>51); GLUCOSE, FASTING 104 MG/DL (70-100); HDL CHOLESTEROL 52 MG/DL (>40); IRON (FE) 109 UG/DL (50-170); LDL CHOLESTEROL 114.8 MG/DL (<100); NON-HDL-C 174 MG/DL; PERCENT SATURATION 30.5 % (13.2-45.0); POTASSIUM SERUM 3.9 MEQ/L (3.5-5.1); RHEUMATOID FACTOR QUANT < 10.0 IU/ML (<15.0); SODIUM LEVEL 144 MEQ/L (136-145); TOTAL IRON BINDING CAPACITY 357 UG/DL (250-450); TOTAL PROTEIN 6.3 GM/DL (6.4-8.2); TRIGLYCERIDES LEVEL 296 MG/DL (<150); URIC ACID 4.3 MG/DL (2.6-6.0)
[2017-12-26 09:54] LABS: TOTAL 25(OH) VITAMIN D 18.9 NG/ML (30.0-100.0); VITAMIN B12 LEVEL 745 PG/ML (247-911)
[2017-12-26 09:55] LABS: FOLATE 21.9 NG/ML (>5.4)
[2017-12-26 10:23] LABS: ERYTHROCYTE SEDIMENTATION RATE 12 mm/hr (0-30)
[2017-12-28 00:07] LABS: ANTINUCLEAR ANTIBODIES DIRECT Negative (Negative); Lyme Disease IgG/IgM Antibodie <0.91 ISR (0.00-0.90); Lyme Disease IgM Ab Quantitati <0.80 index (0.00-0.79)
[2017-12-28 00:07] LABS: CYCLIC CITRULLINATED PEPTIDE 4 units (0-19)
== END ==
LOC: M LAB 08:37
DX: R42 Dizziness and giddiness (principal); R53.1 Weakness
CPT/HCPCS: 82746

== ENCOUNTER → 2018-01-25 | Outpatient (CLI) | payer OTHER ==
[2018-01-25 14:42] LABS: BASO # 0.1 10^3/uL (0.0-0.2); BASO % 1.2 % (0.0-1.0); EOS # 0.2 10^3/uL (0.0-0.50); HEMATOCRIT 38.7 % (36.0-47.0); HEMOGLOBIN 13.2 g/dl (12.0-15.5); IMMATURE GRANULOCYTE % 0.2 % (0-3.0); LYMPH # 1.5 10^3/uL (1.5-4.5); LYMPH % 30.2 % (24.0-44.0); MEAN CORPUSCULAR HEMOGLOBIN 31.8 pg (27.0-33.0); MEAN CORPUSCULAR HGB CONC 34.1 g/dl (32.0-36.5); MEAN CORPUSCULAR VOLUME 93.3 fl (80.0-96.0); MONO # 0.4 10^3/uL (0.0-0.8); MONO % 7.1 % (0.0-5.0); NEUTROPHILS % 58.3 % (36.0-66.0); PLATELET COUNT, AUTOMATED 245 10^3/uL (150-450); RED BLOOD COUNT 4.15 10^6/uL (4.00-5.40); RED CELL DISTRIBUTION WIDTH 12.9 % (11.5-14.5); WHITE BLOOD COUNT 5.1 10^3/uL (4.0-10.0)
[2018-01-25 15:08] LABS: ERYTHROCYTE SEDIMENTATION RATE 13 mm/hr (0-30)
[2018-01-25 15:15] LABS: ALBUMIN 3.6 GM/DL (3.2-5.2); ALBUMIN/GLOBULIN RATIO 1.16 (1.00-1.93); ALKALINE PHOSPHATASE 73 U/L (45-117); ALT/SGPT 31 U/L (12-78); ANION GAP 5 MEQ/L (8-16); AST/SGOT 21 U/L (7-37); BILIRUBIN,TOTAL 0.5 MG/DL (0.2-1.0); BLOOD UREA NITROGEN 12 MG/DL (7-18); CALCIUM LEVEL 8.8 MG/DL (8.5-10.1); CARBON DIOXIDE LEVEL 30 MEQ/L (21-32); CHLORIDE LEVEL 108 MEQ/L (98-107); CREATININE FOR GFR 0.72 MG/DL (0.55-1.30); GLOMERULAR FILTRATION RATE > 60.0 (>51); GLUCOSE, FASTING 83 MG/DL (70-100); POTASSIUM SERUM 4.1 MEQ/L (3.5-5.1); RHEUMATOID FACTOR QUANT < 10.0 IU/ML (<15.0); SODIUM LEVEL 143 MEQ/L (136-145); TOTAL PROTEIN 6.7 GM/DL (6.4-8.2)
[2018-01-29 11:22] LABS: DRVV SCREEN 35.8 SEC
[2018-01-29 11:27] LABS: PTT LUPUS TYPE ANTICOAG SCREEN 0.9 (0-1.2)
[2018-01-30 10:12] LABS: ANCA-ATYPICAL <1:20 titer (Neg:<1:20); ANTI DOUBLE STRAND-DNA AB <1 IU/mL (0-9); ANTINUCLEAR ANTIBODIES DIRECT Negative (Negative); CYTOPLASMIC NEUTROP AB ANCA-C <1:20 titer (Neg:<1:20); PERINUCLEAR AB ANCA-P <1:20 titer (Neg:<1:20); SJOGREN'S ANTI SS-A <0.2 AI (0.0-0.9); SJOGREN'S ANTI SS-B <0.2 AI (0.0-0.9); VITAMIN B1 LEVEL WHOLE BLOOD 133.9 nmol/L (66.5-200.0); VITAMIN B6,PYRIDOXAL PHOSPHATE 17.7 ug/L (2.0-32.8); VITAMIN E(ALPHA TOCOPHEROL) 16.4 mg/L (7.0-25.1); VITAMIN E(GAMMA TOCOPHEROL) 2.6 mg/L (0.5-5.5)
[2018-01-30 16:12] LABS: ALBUMIN % 64.2 % (55.8-66.1); ALPHA-1-GLOBULIN % 3.3 % (2.9-4.9); ALPHA-1-GLOBULINS 0.22 GM/DL (0.17-0.41); ALPHA-2-GLOBULINS 0.68 GM/DL (0.42-0.99); ALPHA-2-GLOBULINS % 10.2 % (7.1-11.8); BETA-1-GLOBULINS 0.46 GM/DL (0.28-0.60); BETA-1-GLOBULINS % 6.9 % (4.7-7.2); BETA-2-GLOBULINS 0.43 GM/DL (0.19-0.55); BETA-2-GLOBULINS % 6.4 % (3.2-6.5)
== END ==
LOC: M LAB 13:21
DX: G62.9 Polyneuropathy, unspecified (principal); G37.9 Demyelinating disease of central nervous system, unspecified
CPT/HCPCS: 84165

== ENCOUNTER 2018-02-12 16:58 | Emergency (ER) | payer OTHER ==
[2018-02-12] MEDS: MORPHINE 2 MG/ML 1ML SYRINGE (J2270) IM (19:14)
[2018-02-12] MEDS: PERCOCET 5MG/325MG TAB PO (21:23)
[2018-02-12] MEDS: OXYCODONE/APAP 5MG/325MG(BULK FOR ED) 1 TABLET PO (22:35)
== END 2018-02-12 22:38 | disposition home or self-care (01) ==
LOC: M ED 16:58
DX: S89.91XA Unspecified injury of right lower leg, initial encounter (principal); X58.XXXA Exposure to other specified factors, initial encounter; Y92.099 Unspecified place in other non-institutional residence as the place of occurrence of the external cause; Y93.9 Activity, unspecified; Y99.9 Unspecified external cause status; I10 Essential (primary) hypertension; R51 Headache; E78.00 Pure hypercholesterolemia, unspecified; K21.9 Gastro-esophageal reflux disease without esophagitis; K57.92 Diverticulitis of intestine, part unspecified, without perforation or abscess without bleeding; M54.9 Dorsalgia, unspecified; Z87.01 Personal history of pneumonia (recurrent); Z98.84 Bariatric surgery status; Z79.899 Other long term (current) drug therapy; Z88.6 Allergy status to analgesic agent
CPT/HCPCS: J2270

== ENCOUNTER 2019-09-22 09:13 | Emergency (ER) | payer OTHER ==
[~2019-09-22] VITALS: Ht 170.2 cm; Wt 81.4 kg
[~2019-09-22 09:13] MED LIST changes: +ACETAMINOPHEN-COD; +ASPI81TA63; +CEFD1CAP8 PO; +CYCL-707 PO; +GABA-1171; -GASTROGRAFIN SOLUTION 30ML (Q9963) As Ordered; -ISOVUE-370 76% 100ML VIAL (Q9967) As Ordered; +MECL-86 PO; +MISO200T56 PO; +MULT1TAB10 PO; +NAPR-837 PO; +OMEP40CA97 PO; +PERC5TAB12 PO; +PREDOPD; +PRIL20CA; +PRIL20CA9 PO; +ROBA500T PO; +SUCR1SS PO; +TYLE325T5 PO; +TYLETAB14 PO; +VALA500T5 PO; +VALI5TAB PO; +VITA500S3 SL; +ZANT300T9 PO; +ZOCO20TA
[2019-09-22] MEDS: PANTOPRAZOLE 40MG VIAL (C9113 PER 1) IV ONE (10:08)
[2019-09-22] MEDS: NS 1,000 ML IV ONE (10:08)
[2019-09-22] MEDS: KETOROLAC 30 MG/ML 1ML VIAL IV ONE (10:09)
[2019-09-22 10:20] LABS: BASO # 0.1 10^3/uL (0.0-0.2); BASO % 1.3 % (0.0-1.0); EOS # 0.2 10^3/uL (0.0-0.5); EOS % 5.2 % (0.0-3.0); HEMATOCRIT 40.4 % (36.0-47.0); HEMOGLOBIN 13.5 g/dl (12.0-15.5); LYMPH # 1.4 10^3/uL (1.5-5.0); LYMPH % 29.8 % (24.0-44.0); MEAN CORPUSCULAR HEMOGLOBIN 31.5 pg (27.0-33.0); MEAN CORPUSCULAR HGB CONC 33.4 g/dl (32.0-36.5); MEAN CORPUSCULAR VOLUME 94.2 fl (80.0-96.0); MONO # 0.4 10^3/uL (0.0-0.8); MONO % 8.5 % (0.0-5.0); NEUTROPHILS # 2.5 10^3/uL (1.5-8.5); PLATELET COUNT, AUTOMATED 268 10^3/uL (150-450); RED BLOOD COUNT 4.29 10^6/uL (4.00-5.40); WHITE BLOOD COUNT 4.6 10^3/uL (4.0-10.0)
[2019-09-22 10:41] LABS: ALBUMIN 3.7 GM/DL (3.2-5.2); ALT/SGPT 32 U/L (12-78); BILIRUBIN,DIRECT 0.2 MG/DL (0.0-0.2); BILIRUBIN,TOTAL 0.7 MG/DL (0.2-1.0); BLOOD UREA NITROGEN 15 MG/DL (7-18); CALCIUM LEVEL 8.9 MG/DL (8.8-10.2); CARBON DIOXIDE LEVEL 25 MEQ/L (21-32); CHLORIDE LEVEL 108 MEQ/L (98-107); CPK CREATINE PHOSPHOKINASE 310 U/L (26-192); CREATININE FOR GFR 0.83 MG/DL (0.55-1.30); GLOMERULAR FILTRATION RATE > 60.0 (>45); GLUCOSE, FASTING 121 MG/DL (70-100); LIPASE 168 U/L (73-393); MB/CK RELATIVE INDEX 0.97 (< OR =4); POTASSIUM SERUM 3.9 MEQ/L (3.5-5.1); SODIUM LEVEL 143 MEQ/L (136-145); TOTAL PROTEIN 6.8 GM/DL (6.4-8.2); TROPONIN I < 0.02 NG/ML (< 0.10)
--- NOTE | 2019-09-22 11:12 | REP ---
REASON FOR EXAM: Abdominal pain. Comparison examination is 12/18/2017. COMPARISON: No priors. FINDINGS: The superior mediastinal structures are midline. The cardiac silhouette is unremarkable in size, shape, and position. The diaphragmatic surfaces of the lungs are regular, and the costophrenic angles are clear. The pulmonary key are clear. The imaged osseous structures are intact. IMPRESSION: There is no acute cardiopulmonary disease. Electronically Signed by Deshawn Palmer DO 09/22/2019 11:21 A
[2019-09-22] MEDS: ACETAMINOPHEN 500 MG TAB PO ONE (13:31)
[2019-09-22] MEDS: LIDOCAINE 5% (LIDODERM) PATCH TD ONE (14:34)
[2019-09-22] MEDS: **NOTE PATIENT COMMENT** MISC XX SCH (14:35)
[2019-09-22] MEDS ORDERED: CYCL5TAB PO (14:45)
[2019-09-22] MEDS ORDERED: LIDO5DIS41 TOP (14:45)
[2019-09-22 14:53] VITALS: BP 147/84
--- NOTE | 2019-09-22 15:12 | REP ---
CT ABDOMEN AND PELVIS WITHOUT CONTRAST: CT abdomen and pelvis performed without oral or IV contrast. Sagittal and coronal reconstruction images are performed. No infiltrate is seen in the visualized lung bases. There appears to be a small cyst in the left lobe of the liver as seen on prior CT 10/29/2017. The patient has had a prior cholecystectomy. The spleen is normal in size and grossly unremarkable. The adrenal glands are normal. Pancreas is grossly unremarkable. There are multiple bilateral renal cysts which are primarily in the region of the renal pelvis bilaterally. These appear unchanged. There is no renal calculus or hydroureter. There is mild atherosclerotic calcification of the abdominal aorta without aneurysm. There is no adenopathy, free air or free fluid. There is sigmoid diverticulosis without acute diverticulitis. There is a left ovarian cyst which appears unchanged compared to prior studies. Diameter is approximately 5.4 cm. No other pelvic abnormality is seen. Urinary bladder is not well distended and not well-evaluated. There is a small hiatal hernia. IMPRESSION: Left ovarian cyst approximately 5.4 cm in diameter appears similar to prior studies. No free air or free fluid. Small hiatal hernia. Sigmoid diverticulosis without acute diverticulitis. No other acute finding. Electronically Signed by Quincy Zamarripa MD 09/22/2019 04:00 P
--- NOTE | 2019-09-22 18:37 | ECGEPIP ---
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
--- NOTE | 2019-09-23 14:36 | ED PDOC ---
Post-Departure Follow-Up [facility]ita d[facility] faxed formal report of ct abd/p for fu Jason García MD September 23, 2019 14:36
== END 2019-09-22 15:05 | disposition home or self-care (01) ==
LOC: M ED 09:13
DX: S29.012A Strain of muscle and tendon of back wall of thorax, initial encounter (principal); N83.202 Unspecified ovarian cyst, left side; N28.1 Cyst of kidney, acquired; X50.9XXA Other and unspecified overexertion or strenuous movements or postures, initial encounter; Y92.096 Garden or yard of other non-institutional residence as the place of occurrence of the external cause; I10 Essential (primary) hypertension; K21.9 Gastro-esophageal reflux disease without esophagitis; M54.2 Cervicalgia; K57.92 Diverticulitis of intestine, part unspecified, without perforation or abscess without bleeding; Z98.84 Bariatric surgery status; Z87.891 Personal history of nicotine dependence; Z88.8 Allergy status to other drugs, medicaments and biological substances; Z79.899 Other long term (current) drug therapy
CPT/HCPCS: 71046; 74176; 80048; 80076; 81001; 82550; 82553; 83690; 85025; 85379; 93005; 96374; 96375; 99284; C9113; J1885

== ENCOUNTER 2020-04-29 15:32 | Emergency (ER) | payer OTHER ==
[~2020-04-29] VITALS: Ht 167.6 cm; Wt 73.6 kg
[~2020-04-29 15:32] MED LIST changes: +CYCL5TAB PO; +LIDO5DIS41 TOP
[2020-04-29 16:37] LABS: BASO % 0.4 % (0.0-1.0); HEMATOCRIT 37.7 % (36.0-47.0); HEMOGLOBIN 12.2 g/dl (12.0-15.5); LYMPH # 0.5 10^3/uL (1.5-5.0); LYMPH % 6.8 % (24.0-44.0); MEAN CORPUSCULAR HEMOGLOBIN 30.3 pg (27.0-33.0); MEAN CORPUSCULAR HGB CONC 32.4 g/dl (32.0-36.5); MEAN CORPUSCULAR VOLUME 93.8 fl (80.0-96.0); MONO # 0.1 10^3/uL (0.0-0.8); MONO % 1.6 % (0.0-5.0); NEUTROPHILS # 6.8 10^3/uL (1.5-8.5); NEUTROPHILS % 90.9 % (36.0-66.0); PLATELET COUNT, AUTOMATED 250 10^3/uL (150-450); RED BLOOD COUNT 4.02 10^6/uL (4.00-5.40); WHITE BLOOD COUNT 7.5 10^3/uL (4.0-10.0)
[2020-04-29 17:16] LABS: ALBUMIN 3.8 GM/DL (3.2-5.2); ALT/SGPT 26 U/L (12-78); BILIRUBIN,DIRECT < 0.1 MG/DL (0.0-0.2); BILIRUBIN,TOTAL 0.3 MG/DL (0.2-1.0); BLOOD UREA NITROGEN 17 MG/DL (7-18); CALCIUM LEVEL 8.9 MG/DL (8.8-10.2); CARBON DIOXIDE LEVEL 25 MEQ/L (21-32); CHLORIDE LEVEL 111 MEQ/L (98-107); CK-MB VALUE MASS 1.4 NG/ML (<3.6); CPK CREATINE PHOSPHOKINASE 138 U/L (26-192); GLOMERULAR FILTRATION RATE > 60.0 (>45); GLUCOSE, FASTING 150 MG/DL (70-100); MB/CK RELATIVE INDEX 1.01 (< OR =4); NT-PRO BNP 52 PG/ML (<125); POTASSIUM SERUM 3.7 MEQ/L (3.5-5.1); SODIUM LEVEL 142 MEQ/L (136-145); THYROID STIMULATING HORMONE 0.689 uIU/ML (0.358-3.740); THYROXINE (T4) 7.5 UG/DL (4.5-12.0); TOTAL PROTEIN 6.6 GM/DL (6.4-8.2); TROPONIN I < 0.02 NG/ML (< 0.10)
[2020-04-29] MEDS ORDERED: ISOVUE-370 76% 100ML VIAL As Ordered ONE (17:51)
[2020-04-29] MEDS ORDERED: NS 500 ML IV ONE (18:00)
[2020-04-29] MEDS ORDERED: GI COCKTAIL 50ML BTL(HYOSCYAMINE/MAALOX/LIDOCAINE VISCOUS)(1:3:1) PO ONE (18:00)
--- NOTE | 2020-04-29 18:19 | REP ---
INDICATION: DYSPNEA/COUGH. COMPARISON: September 22, 2019.. TECHNIQUE: Portable upright AP chest radiograph. FINDINGS: The lungs are well inflated and free of infiltrate. Pleural angles are sharp. Heart size is normal. Monitoring electrodes are seen. Pulmonary vasculature is not increased. IMPRESSION: No active disease. <Electronically signed by Adi Veliz > 04/29/20 [id number]
--- NOTE | 2020-04-29 18:36 | REPVR ---
PROCEDURE INFORMATION: Exam: CT Angiography Chest With Contrast Exam date and time: 04/29/2020 6:11 PM Age: 60 years old Clinical indication: Shortness of breath; Additional info: SOB TECHNIQUE: Imaging protocol: Computed tomographic angiography of the chest with intravenous contrast. 3D rendering (Not supervised by radiologist): MIP and/or 3D reconstructed images were created by the technologist. Radiation optimization: All CT scans at this facility use at least one of these dose optimization techniques: automated exposure control; mA and/or kV adjustment per patient size (includes targeted exams where dose is matched to clinical indication); or iterative reconstruction. Contrast material: ISOVUE 370; Contrast volume: 100 ml; Contrast route: INTRAVENOUS (IV); COMPARISON: CR Chest, 2 view PA, Lat 09/22/2019 9:57 AM FINDINGS: Pulmonary arteries: No filling defects within the main, lobar, segmental, and subsegmental pulmonary arterial branches. Aorta: No aortic aneurysm. No evidence of dissection. Lungs: No focal areas of consolidation. Pleural space: No pleural effusion or pneumothorax. Heart: Unremarkable. No pericardial effusion. Lymph nodes: No enlarged lymph nodes. Kidneys and ureters: Bilateral parapelvic renal cysts versus hydronephrosis. Stomach and bowel: Chronic postoperative changes compatible with gastric bypass. Bones/joints: No acute osseus lesion or fracture. Soft tissues: Unremarkable. IMPRESSION: 1. No CTA evidence of pulmonary embolism or other acute findings in the thorax. 2. Bilateral parapelvic renal cysts versus hydronephrosis. Correlate with renal imaging. 3. Other chronic findings, as above. COMMENTS: Consistent with the [employer]'s Incidental Findings Committee white paper (J Am Cata Radiol 2018): Any incidental renal lesion less than 1 cm or classified as too small to characterize, or any incidental cystic renal lesion characterized as simple-appearing, is likely benign. No follow-up imaging is recommended for these lesions per consensus recommendations based on imaging criteria. Electronically signed by: Gustavo Vargas On 04/29/2020 18:35:34 PM
[2020-04-29] MEDS ORDERED: PRIL20TA2 PO (18:48)
[2020-04-29 19:00] VITALS: BP 150/68
--- NOTE | 2020-04-29 19:17 | ED PDOC ---
Post-Departure Follow-Up cta chest faxed to [facility]arita d[facility] for fu Jason García MD Apr 29, 2020 19:17
--- NOTE | 2020-05-01 09:15 | ECGEPIP ---
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
== END 2020-04-29 19:10 | disposition home or self-care (01) ==
LOC: EDBD 15:32 → M ED 15:32
DX: K21.9 Gastro-esophageal reflux disease without esophagitis (principal); R06.00 Dyspnea, unspecified; Z98.84 Bariatric surgery status; Z79.899 Other long term (current) drug therapy; Z88.8 Allergy status to other drugs, medicaments and biological substances
CPT/HCPCS: 36415; 71045; 71275; 80048; 80076; 82550; 82553; 83605; 83880; 84436; 84443; 85025; 87486; 87581; 87633; 87798; 93005; 93041; 94760; 99285; Q9967

== ENCOUNTER → 2020-07-27 | Outpatient (CLI) | payer OTHER ==
[~2020-07-27] MED LIST changes: +PRIL20TA2 PO
--- NOTE | 2020-07-27 11:14 | PFTRPT ---
Height: 67.00 Inches Weight: 165.00 Lbs BSA: 1.86 Diagnosis: R05 DATE: 07/27/2020 ORDERING PHYSICIAN: Ying Hogan NP Pre and post bronchodilator studies have excellent technical quality. Forced vital capacity is normal. FEV1 is in proportion. Obstructive index is therefore normal. Expiratory limit of the flow-volume loop is normal. No significant bronchodilator response is identified. Total lung capacity is normal. Residual volume is in proportion. Diffusing capacity is normal. Hemoglobin is acceptable at 14.2. Airway resistance and conductance are normal. IMPRESSION: Normal study. MTDD
== END ==
LOC: M CARPUL 10:20
PROVIDERS: ATTEND Nurse Practitioner Family
DX: R05 Cough (principal)

== ENCOUNTER → 2020-09-10 | Outpatient (CLI) | payer OTHER ==
[~2020-09-10] MED LIST changes: +E-Z-GAS II EFFERVESCENT PACKET (SODIUM BICARB./CITRIC ACID/SIMETHICONE) As Ordered ONE; +E-Z-HD 98% w/w 340GM SUSP BTL As Ordered ONE; +E-Z-PAQUE 96% w/w SUSP 176GM BTL As Ordered ONE
--- NOTE | 2020-09-10 14:00 | REP ---
INDICATION: HEARTBURN. COMPARISON: None TECHNIQUE: This procedure was performed by Sasha Vega, [facility], under the direct supervision of Dr. Veliz. Images were reviewed with Dr. Veliz prior to dictation. Liquid barium and gas producing crystals were given in the erect position, as well as liquid barium in the prone oblique position in order to perform a double contrast esophagram examination. FINDINGS: A single view PA chest x-ray is submitted as a ranch hand film. The superior mediastinal structures are midline. The heart size is within normal limits. The lungs are clear. The oral and pharyngeal stages of deglutition were unremarkable. Esophageal transport is prompt and efficient. There were multiple small mucosal irregularities of the distal esophagus, this is most consistent with esophagitis, endoscopic correlation should be considered. There is evidence of a hiatal hernia. There was no gastroesophageal reflux noted . IMPRESSION: 1. Mucosal irregularities of the distal esophagus most consistent with esophagitis, endoscopic correlation should be considered. 2. Hiatal hernia. 0.4 minutes of fluoroscopy time was utilized for this procedure. Some fluoroscopic images are performed with last image hold technology. These images require no additional radiation. <Electronically signed by Sasha Vega > 09/10/20 0223 <Electronically signed by Adi Veliz > 09/10/20 [id number]
== END ==
LOC: M RAD 07:27
PROVIDERS: ATTEND Internal Medicine Gastroenterology
DX: K44.9 Diaphragmatic hernia without obstruction or gangrene (principal); R12 Heartburn

== ENCOUNTER → 2020-10-17 | Outpatient (CLI) | payer OTHER ==
[~2020-10-17] MED LIST changes: -E-Z-GAS II EFFERVESCENT PACKET (SODIUM BICARB./CITRIC ACID/SIMETHICONE) As Ordered ONE; -E-Z-HD 98% w/w 340GM SUSP BTL As Ordered ONE; -E-Z-PAQUE 96% w/w SUSP 176GM BTL As Ordered ONE; +OMEP1CAP73 PO; +VITA-243 PO; +VITA500S3 PO; -VITA500S3 SL; +VITMTA PO
== END ==
LOC: M LABSMTC 10:04
PROVIDERS: ATTEND Anesthesiology
DX: Z01.812 Encounter for preprocedural laboratory examination (principal); Z11.52 Encounter for screening for COVID-19

== ENCOUNTER 2020-10-22 11:53 | Day surgery (SDC) | payer OTHER ==
[~2020-10-22] VITALS: Ht 170.2 cm; Wt 82.6 kg
[~2020-10-22 11:53] MED LIST changes: +LIDOCAINE 2% 100MG/5ML SDV (FOR ANES.) As Ordered ONE; +NS 1,000 ML IV ONE; +propofoL 200 MG/20 ML VIAL As Ordered ONE
[2020-10-22] MEDS ORDERED: fentaNYL 100 MCG/2 ML INJECTION (J3010) As Ordered ONE (13:12)
--- NOTE | 2020-10-22 14:55 | ROOR ---
Patient Name: Celestina Serna Procedure Date: 10/22/2020 2:32 PM Date of : 1960 Age: 60 Room: [facility] Gender: Female Note Status: Finalized Procedure: Upper GI endoscopy Indications: Dysphagia, Heartburn, Abnormal UGI series Providers: Kamaljit Mcclendon MD Referring MD: RON SHERIFF NP Requesting Provider: Medicines: Monitored Anesthesia Care Complications: No immediate complications. Procedure: Pre-Anesthesia Assessment: - The heart rate, respiratory rate, oxygen saturations, blood pressure, adequacy of pulmonary ventilation, and response to care were monitored throughout the procedure. The Endoscope was introduced through the mouth, and advanced to the jejunum. The upper GI endoscopy was accomplished without difficulty. The patient tolerated the procedure well. Findings: A low-grade of narrowing Schatzki ring was found at the gastroesophageal junction. This was biopsied with a cold forceps for histology. A TTS dilator was passed through the scope. Dilation with an 18-19-20 mm balloon dilator was performed to 19 mm. The dilation site was examined and showed complete resolution of luminal narrowing. The Z-line was variable and was found 38 cm from the incisors. This was biopsied with a cold forceps for histology. Biopsy with a cold forceps in the proximal esophagus and in the mid esophagus was performed for evaluation of eosinophilic esophagitis. Very small (insignificant) Hiatal Hernia. Evidence of a Epifanio-en-Y gastrojejunostomy was found. The gastrojejunal anastomosis was characterized by healthy appearing mucosa. The examined jejunum was normal. Impression: - Low-grade of narrowing Schatzki ring. Biopsied. Dilated. - Z-line variable, 38 cm from the incisors. Biopsied. - Very small (insignificant) Hiatal Hernia. - Epifanio-en-Y gastrojejunostomy with gastrojejunal anastomosis characterized by healthy appearing mucosa. - Normal examined jejunum. - Biopsies were performed in the proximal esophagus and in the mid esophagus. Recommendation: - Continue present medications. - Use Prilosec (omeprazole) 40 mg PO daily. Procedure Code(s): --- Professional --- 21792, Esophagogastroduodenoscopy, flexible, transoral; with transendoscopic balloon dilation of esophagus (less than 30 mm diameter) 42946, 59, Esophagogastroduodenoscopy, flexible, transoral; with biopsy, single or multiple Diagnosis Code(s): --- Professional --- R93.3, Abnormal findings on diagnostic imaging of other parts of digestive tract R12, Heartburn R13.10, Dysphagia, unspecified Z98.0, Intestinal bypass and anastomosis status K22.8, Other specified diseases of esophagus K22.2, Esophageal obstruction CPT copyright 2019 [employer]. All rights reserved. The codes documented in this report are preliminary and upon agronomy professor review may be revised to meet current compliance requirements. Kamaljit Mcclendon MD Kamaljit Mcclendon MD 10/22/2020 2:54:46 PM Electronically signed by Kamaljit Mcclendon MD Number of Addenda: 0 Note Initiated On: 10/22/2020 2:32 PM Estimated Blood Loss: Estimated blood loss: none.
[2020-10-22 15:20] VITALS: BP 143/82
== END 2020-10-22 15:27 | disposition home or self-care (01) ==
LOC: M OPP 11:53
PROVIDERS: ATTEND Internal Medicine Gastroenterology
DX: K22.8 Other specified diseases of esophagus (principal); K22.2 Esophageal obstruction; K44.9 Diaphragmatic hernia without obstruction or gangrene; Z98.0 Intestinal bypass and anastomosis status; R12 Heartburn; R13.10 Dysphagia, unspecified; R93.3 Abnormal findings on diagnostic imaging of other parts of digestive tract; Z88.8 Allergy status to other drugs, medicaments and biological substances; Z79.899 Other long term (current) drug therapy
CPT/HCPCS: 43239; 43249; 88305; J3010

== ENCOUNTER 2021-01-30 11:08 | Emergency (ER) | payer OTHER ==
[~2021-01-30] VITALS: Ht 170.2 cm; Wt 82.3 kg
[~2021-01-30 11:08] MED LIST changes: -LIDOCAINE 2% 100MG/5ML SDV (FOR ANES.) As Ordered ONE; -NS 1,000 ML IV ONE; +OMEP40CA4 PO; -OMEP40CA97 PO; -propofoL 200 MG/20 ML VIAL As Ordered ONE
[2021-01-30 11:09] VITALS: BP 148/81
== END 2021-01-30 11:49 | disposition left against medical advice (07) ==
LOC: M ED 11:08
DX: Z53.29 Procedure and treatment not carried out because of patient's decision for other reasons (principal)

== ENCOUNTER → 2021-07-22 | Outpatient (CLI) | payer OTHER ==
[~2021-07-22] MED LIST changes: -CEFD1CAP8 PO; +CEFD300C41 PO
[2021-07-22 08:23] LABS: HEMATOCRIT 39.1 % (36.0-47.0); MEAN CORPUSCULAR HEMOGLOBIN 31.2 pg (27.0-33.0); MEAN CORPUSCULAR HGB CONC 33.2 g/dl (32.0-36.5); MEAN CORPUSCULAR VOLUME 93.8 fl (80.0-96.0); PLATELET COUNT, AUTOMATED 246 10^3/uL (150-450); RED BLOOD COUNT 4.17 10^6/uL (4.00-5.40); WHITE BLOOD COUNT 3.5 10^3/uL (4.0-10.0)
[2021-07-22 08:56] LABS: ALBUMIN 3.8 GM/DL (3.2-5.2); ALT/SGPT 33 U/L (12-78); BILIRUBIN,TOTAL 0.5 MG/DL (0.2-1.0); BLOOD UREA NITROGEN 13 MG/DL (7-18); CALCIUM LEVEL 8.9 MG/DL (8.8-10.2); CARBON DIOXIDE LEVEL 29 MEQ/L (21-32); CHLORIDE LEVEL 110 MEQ/L (98-107); CHOLESTEROL LEVEL 214 MG/DL (<200); CHOLESTEROL RISK RATIO 4.115 (<5); CREATININE FOR GFR 0.79 MG/DL (0.55-1.30); GLOMERULAR FILTRATION RATE > 60.0 (>45); GLUCOSE, FASTING 111 MG/DL (70-100); HDL CHOLESTEROL 52 MG/DL (>40); LDL CHOLESTEROL 130 MG/DL (<100); NON-HDL-C 162 MG/DL; POTASSIUM SERUM 3.9 MEQ/L (3.5-5.1); RHEUMATOID FACTOR QUANT < 10.0 IU/ML (<15.0); SODIUM LEVEL 142 MEQ/L (136-145); TOTAL PROTEIN 6.6 GM/DL (6.4-8.2); TRIGLYCERIDES LEVEL 160 MG/DL (<150)
[2021-07-22 09:08] LABS: ERYTHROCYTE SEDIMENTATION RATE 7 mm/hr (0-30)
[2021-07-22 09:49] LABS: HEMOGLOBIN A1c 6.1 %
[2021-07-22 11:23] LABS: TOTAL 25(OH) VITAMIN D 22.9 NG/ML (30.0-100.0)
== END ==
LOC: M RAD 07:37
PROVIDERS: ATTEND Family Medicine
DX: I10 Essential (primary) hypertension (principal); D64.9 Anemia, unspecified; R53.83 Other fatigue

== ENCOUNTER → 2021-09-08 | Outpatient (REF) | payer OTHER | LOC: M LAB REF 16:35 | PROVIDERS: ATTEND Physician Assistant | DX: R05.9 Cough, unspecified (principal); R09.81 Nasal congestion ==

== ENCOUNTER → 2021-09-19 | Outpatient (CLI) | payer OTHER ==
[~2021-09-19] MED LIST changes: +ISOVUE-370 76% 100ML VIAL As Ordered ONE
== END ==
LOC: M RAD 07:27
PROVIDERS: ATTEND Nurse Practitioner Women's Health
DX: N28.1 Cyst of kidney, acquired (principal)
CPT/HCPCS: 74178; Q9967

== ENCOUNTER 2021-09-24 04:02 | Emergency (ER) | payer OTHER ==
[~2021-09-24] VITALS: Ht 170.2 cm; Wt 79.9 kg
[~2021-09-24 04:02] MED LIST changes: -ISOVUE-370 76% 100ML VIAL As Ordered ONE
[2021-09-24 04:03] VITALS: BP 165/79
== END 2021-09-24 04:14 | disposition left against medical advice (07) ==
LOC: M ED 04:02
DX: Z53.29 Procedure and treatment not carried out because of patient's decision for other reasons (principal)

== ENCOUNTER → 2021-09-26 | Outpatient (REF) | payer OTHER ==
[2021-09-26 13:37] LABS: APPEARANCE, URINE HAZY (CLEAR); BACTERIA, URINE AUTO NEGATIVE (NEGATIVE); BILIRUBIN, URINE AUTO NEGATIVE (NEGATIVE); BLOOD, URINE BLOOD NEGATIVE (NEGATIVE); COLOR, URINE YELLOW (YELLOW); GLUCOSE, URINE (UA) AUTO NEGATIVE (NEGATIVE); KETONE, URINE AUTO NEGATIVE (NEGATIVE); LEUKOCYTE ESTERASE, URINE AUTO TRACE (NEGATIVE); MUCUS, URINE SMALL (NEGATIVE); NITRITE, URINE AUTO NEGATIVE (NEGATIVE); PROTEIN, URINE AUTO NEGATIVE (NEGATIVE); RBC, URINE AUTO 0 /HPF (0-3); SPECIFIC GRAVITY URINE AUTO 1.023 (1.002-1.035); SQUAMOUS EPITHELIAL CELL UR AU 0 /HPF (0-6); UROBILINOGEN, URINE AUTO 0.2 mg/dL (0.0-2.0); WBC, URINE AUTO 2 /HPF (0-3)
== END ==
LOC: M SMT 12:51
PROVIDERS: ATTEND Nurse Practitioner Women's Health
DX: N28.1 Cyst of kidney, acquired (principal)

== ENCOUNTER → 2021-09-30 | Outpatient (CLI) | payer OTHER | LOC: M RAD 18:58 | PROVIDERS: ATTEND Family Medicine | DX: M47.816 Spondylosis without myelopathy or radiculopathy, lumbar region (principal); M54.30 Sciatica, unspecified side; M51.37 Other intervertebral disc degeneration, lumbosacral region ==

== ENCOUNTER → 2021-10-30 | Outpatient (CLI) | payer OTHER | LOC: M RAD 10:24 | PROVIDERS: ATTEND Physician Assistant | DX: S13.4XXA Sprain of ligaments of cervical spine, initial encounter (principal) ==

== ENCOUNTER 2021-12-16 08:45 | Emergency (ER) | payer OTHER ==
[~2021-12-16] VITALS: Ht 167.6 cm; Wt 164.0 kg
[2021-12-16 12:05] VITALS: BP 145/68
[2021-12-16] MEDS ORDERED: FLON1SPR NARES (12:26)
[2021-12-16] MEDS ORDERED: LIDO5DIS41 TOP (12:26)
[2021-12-16] MEDS ORDERED: ZYRTTAB8 PO (12:26)
== END 2021-12-16 12:42 | disposition home or self-care (01) ==
LOC: M ED 08:45
DX: R07.89 Other chest pain (principal); G44.89 Other headache syndrome; J30.89 Other allergic rhinitis; K21.9 Gastro-esophageal reflux disease without esophagitis; M54.50 Low back pain, unspecified; Z79.899 Other long term (current) drug therapy

== ENCOUNTER 2022-03-29 08:04 | Emergency (ER) | payer OTHER ==
[~2022-03-29] VITALS: Ht 167.6 cm; Wt 79.3 kg
[~2022-03-29 08:04] MED LIST changes: +FLON1SPR NARES; +ZYRTTAB8 PO
[2022-03-29 08:05] VITALS: BP 182/81
[2022-03-29 09:09] LABS: BASO # 0.1 10^3/uL (0.0-0.2); BASO % 1.2 % (0.0-1.0); EOS # 0.3 10^3/uL (0.0-0.5); EOS % 5.8 % (0.0-3.0); HEMATOCRIT 38.4 % (36.0-47.0); HEMOGLOBIN 12.4 g/dl (12.0-15.5); LYMPH # 1.4 10^3/uL (1.5-5.0); LYMPH % 31.9 % (24.0-44.0); MEAN CORPUSCULAR HEMOGLOBIN 30.1 pg (27.0-33.0); MEAN CORPUSCULAR HGB CONC 32.3 g/dl (32.0-36.5); MEAN CORPUSCULAR VOLUME 93.2 fl (80.0-96.0); MONO # 0.3 10^3/uL (0.0-0.8); MONO % 7.4 % (2.0-8.0); NEUTROPHILS # 2.3 10^3/uL (1.5-8.5); NEUTROPHILS % 53.5 % (36.0-66.0); PLATELET COUNT, AUTOMATED 251 10^3/uL (150-450); RED BLOOD COUNT 4.12 10^6/uL (4.00-5.40); WHITE BLOOD COUNT 4.3 10^3/uL (4.0-10.0)
[2022-03-29 09:42] LABS: ALBUMIN 3.5 GM/DL (3.2-5.2); ALT/SGPT 29 U/L (12-78); BILIRUBIN,DIRECT < 0.1 MG/DL (0.0-0.2); BILIRUBIN,TOTAL 0.6 MG/DL (0.2-1.0); BLOOD UREA NITROGEN 16 MG/DL (7-18); CALCIUM LEVEL 8.7 MG/DL (8.8-10.2); CARBON DIOXIDE LEVEL 28 MEQ/L (21-32); CHLORIDE LEVEL 110 MEQ/L (98-107); GLOMERULAR FILTRATION RATE > 60.0 (>45); GLUCOSE, FASTING 112 MG/DL (70-100); LIPASE 220 U/L (73-393); POTASSIUM SERUM 4.3 MEQ/L (3.5-5.1); SODIUM LEVEL 144 MEQ/L (136-145); TOTAL PROTEIN 6.3 GM/DL (6.4-8.2)
== END 2022-03-29 10:52 | disposition left against medical advice (07) ==
LOC: M ED 08:04
DX: Z53.21 Procedure and treatment not carried out due to patient leaving prior to being seen by health care provider (principal)

== ENCOUNTER 2022-07-09 11:20 | Emergency (ER) | payer OTHER ==
[~2022-07-09] VITALS: Ht 167.6 cm; Wt 77.3 kg
[2022-07-09] MEDS ORDERED: OMEP-173 (11:28)
[2022-07-09 12:11] LABS: BASO # 0.1 10^3/uL (0.0-0.2); BASO % 1.1 % (0.0-1.0); EOS # 0.2 10^3/uL (0.0-0.5); EOS % 3.2 % (0.0-3.0); HEMATOCRIT 37.4 % (36.0-47.0); HEMOGLOBIN 12.1 g/dl (12.0-15.5); LYMPH # 1.4 10^3/uL (1.5-5.0); LYMPH % 29.6 % (24.0-44.0); MEAN CORPUSCULAR HEMOGLOBIN 29.2 pg (27.0-33.0); MEAN CORPUSCULAR HGB CONC 32.4 g/dl (32.0-36.5); MEAN CORPUSCULAR VOLUME 90.3 fl (80.0-96.0); MONO # 0.4 10^3/uL (0.0-0.8); MONO % 9.1 % (2.0-8.0); NEUTROPHILS # 2.7 10^3/uL (1.5-8.5); NEUTROPHILS % 56.6 % (36.0-66.0); PLATELET COUNT, AUTOMATED 249 10^3/uL (150-450); RED BLOOD COUNT 4.14 10^6/uL (4.00-5.40); WHITE BLOOD COUNT 4.7 10^3/uL (4.0-10.0)
[2022-07-09 12:21] LABS: INR 0.86; PROTHROMBIN TIME 11.9 SECONDS (12.5-14.5)
[2022-07-09 12:22] LABS: PARTIAL THROMBOPLASTIN TIME 25.1 SECONDS (24.8-34.2)
[2022-07-09] MEDS ORDERED: ISOVUE-370 76% 100ML VIAL As Ordered ONE (12:34)
[2022-07-09 12:36] LABS: LIPASE 53 U/L (12-53)
[2022-07-09 12:43] LABS: RSV AMPLIFICATION NEGATIVE (NEGATIVE)
[2022-07-09 12:52] LABS: ALBUMIN 3.3 G/DL (3.2-5.2); ALKALINE PHOSPHATASE 83 U/L (46-116); ALT/SGPT 34 U/L (7.0-40); AST/SGOT 33 U/L (<34); BILIRUBIN,DIRECT < 0.1 MG/DL (<0.4); BILIRUBIN,TOTAL 0.5 MG/DL (0.3-1.2); CK-MB VALUE MASS 3.1 NG/ML (<3.6); FREE T4 0.85 NG/DL (0.89-1.76); TOTAL PROTEIN 6.3 G/DL (5.7-8.2)
[2022-07-09 13:01] LABS: CPK CREATINE PHOSPHOKINASE 227 U/L (34-145); MB/CK RELATIVE INDEX 1.36 (< OR =4)
[2022-07-09 13:42] LABS: CK-MB VALUE MASS 1.7 NG/ML (<3.6)
[2022-07-09 13:44] LABS: MB/CK RELATIVE INDEX 0.96 (< OR =4)
[2022-07-09 13:52] VITALS: BP 164/72
[2022-07-09] MEDS ORDERED: MOXI400T11 PO (14:04)
[2022-07-09] MEDS ORDERED: MOXIFLOXACIN 400 MG TAB PO ONE (14:05)
== END 2022-07-09 14:30 | disposition home or self-care (01) ==
LOC: M ED 12:23
DX: J18.9 Pneumonia, unspecified organism (principal); R78.5 Finding of other psychotropic drug in blood; Z98.84 Bariatric surgery status; Z87.891 Personal history of nicotine dependence

== ENCOUNTER 2022-08-29 07:32 | Emergency (ER) | payer MEDICAID, OTHER, SELFPAY ==
[~2022-08-29] VITALS: Ht 170.2 cm; Wt 82.1 kg
[~2022-08-29 07:32] MED LIST changes: +MOXI400T11 PO; +OMEP-173
[2022-08-29 07:33] VITALS: BP 149/77
== END 2022-08-29 09:53 | disposition left against medical advice (07) ==
LOC: M ED 07:32
DX: Z53.21 Procedure and treatment not carried out due to patient leaving prior to being seen by health care provider (principal)

== ENCOUNTER 2022-09-02 12:09 | Emergency (ER) | payer MEDICAID ==
[~2022-09-02] VITALS: Ht 170.2 cm; Wt 79.0 kg
[2022-09-02 12:10] VITALS: BP 148/70
[2022-09-02 13:03] LABS: BASO % 1.2 % (0.0-1.0); EOS # 0.2 10^3/uL (0.0-0.5); EOS % 7.1 % (0.0-3.0); HEMATOCRIT 36.8 % (36.0-47.0); HEMOGLOBIN 12.3 g/dl (12.0-15.5); LYMPH # 1.1 10^3/uL (1.5-5.0); LYMPH % 33.9 % (24.0-44.0); MEAN CORPUSCULAR HEMOGLOBIN 29.6 pg (27.0-33.0); MEAN CORPUSCULAR HGB CONC 33.4 g/dl (32.0-36.5); MEAN CORPUSCULAR VOLUME 88.7 fl (80.0-96.0); MONO # 0.3 10^3/uL (0.0-0.8); MONO % 9.5 % (2.0-8.0); NEUTROPHILS # 1.6 10^3/uL (1.5-8.5); PLATELET COUNT, AUTOMATED 279 10^3/uL (150-450); RED BLOOD COUNT 4.15 10^6/uL (4.00-5.40); WHITE BLOOD COUNT 3.4 10^3/uL (4.0-10.0)
[2022-09-02 13:28] LABS: LIPASE 60 U/L (12-53)
[2022-09-02 13:30] LABS: ALBUMIN 3.7 G/DL (3.2-5.2); ALKALINE PHOSPHATASE 81 U/L (46-116); ALT/SGPT 30 U/L (7.0-40); AST/SGOT 28 U/L (<34); BILIRUBIN,DIRECT < 0.1 MG/DL (<0.4); BILIRUBIN,TOTAL 0.4 MG/DL (0.3-1.2); TOTAL PROTEIN 6.5 G/DL (5.7-8.2)
[2022-09-02] MEDS ORDERED: IBUPROFEN 800 MG TAB PO ONE (13:50)
[2022-09-02] MEDS ORDERED: BACT800T5 PO (13:52)
[2022-09-02] MEDS ORDERED: IBUP80TA PO (13:52)
== END 2022-09-02 14:03 | disposition home or self-care (01) ==
LOC: M ED 12:09
DX: N39.0 Urinary tract infection, site not specified (principal); M54.9 Dorsalgia, unspecified; I25.10 Atherosclerotic heart disease of native coronary artery without angina pectoris; Z98.84 Bariatric surgery status

== ENCOUNTER → 2022-11-06 | Outpatient (CLI) | payer OTHER ==
[~2022-11-06] MED LIST changes: +BACT800T5 PO; +GASTROGRAFIN SOLUTION 30ML ONE; +IBUP80TA PO; +ISOVUE-370 76% 100ML VIAL ONE
== END ==
LOC: M PLAIMG 11:24
PROVIDERS: ATTEND Nurse Practitioner Family
DX: K44.9 Diaphragmatic hernia without obstruction or gangrene (principal); K57.90 Diverticulosis of intestine, part unspecified, without perforation or abscess without bleeding
CPT/HCPCS: 74177; Q9963; Q9967

== ENCOUNTER → 2022-11-22 | Outpatient (CLI) | payer OTHER ==
[~2022-11-22] MED LIST changes: -GASTROGRAFIN SOLUTION 30ML ONE; -ISOVUE-370 76% 100ML VIAL ONE
[2022-11-22 15:30] LABS: BASO # 0.1 10^3/uL (0.0-0.2); BASO % 0.6 % (0.0-1.0); EOS # 0.2 10^3/uL (0.0-0.5); HEMATOCRIT 36.5 % (36.0-47.0); LYMPH # 1.5 10^3/uL (1.5-5.0); LYMPH % 18.4 % (24.0-44.0); MEAN CORPUSCULAR HEMOGLOBIN 29.8 pg (27.0-33.0); MEAN CORPUSCULAR HGB CONC 32.9 g/dl (32.0-36.5); MEAN CORPUSCULAR VOLUME 90.6 fl (80.0-96.0); MONO # 0.5 10^3/uL (0.0-0.8); MONO % 6.5 % (2.0-8.0); NEUTROPHILS # 5.7 10^3/uL (1.5-8.5); NEUTROPHILS % 72.1 % (36.0-66.0); PLATELET COUNT, AUTOMATED 238 10^3/uL (150-450); RED BLOOD COUNT 4.03 10^6/uL (4.00-5.40); WHITE BLOOD COUNT 7.9 10^3/uL (4.0-10.0)
[2022-11-22 16:08] LABS: LIPASE 54 U/L (12-53)
[2022-11-22 16:09] LABS: AMYLASE 119 U/L (30-118)
[2022-11-22 16:10] LABS: ALKALINE PHOSPHATASE 90 U/L (46-116); ALT/SGPT 29 U/L (7.0-40); AST/SGOT 29 U/L (<34); BILIRUBIN,TOTAL 0.6 MG/DL (0.3-1.2); BLOOD UREA NITROGEN 14 MG/DL (9-23); CALCIUM LEVEL 9.8 MG/DL (8.3-10.6); CARBON DIOXIDE LEVEL 26 MMOL/L (20-31); CHLORIDE LEVEL 106 MMOL/L (98-107); CREATININE FOR GFR 0.79 MG/DL (0.55-1.30); GLOMERULAR FILTRATION RATE > 60.0 (>45); GLUCOSE, FASTING 92 MG/DL (74-106); POTASSIUM SERUM 4.4 MMOL/L (3.5-5.1); SODIUM LEVEL 139 MMOL/L (136-145); TOTAL PROTEIN 6.6 G/DL (5.7-8.2)
[2022-11-24 16:18] LABS: ANTINUCLEAR ANTIBODIES DIRECT Negative (Negative); EBV VIRAL CAPSID AG IgG > 600.0 U/mL (0.0-17.9); EBV VIRAL CAPSID AG IgM <36.0 U/mL (0.0-35.9)
== END ==
LOC: M PLALAB 12:32
PROVIDERS: ATTEND Nurse Practitioner Family
DX: R10.9 Unspecified abdominal pain (principal)

== ENCOUNTER 2023-01-28 12:00 | Emergency (ER) | payer MEDICARE, OTHER ==
[~2023-01-28] VITALS: Ht 170.2 cm; Wt 85.2 kg
[~2023-01-28 12:00] MED LIST changes: -MISO200T56 PO; +MISO200T83 PO
[2023-01-28 13:12] LABS: RSV AMPLIFICATION NEGATIVE (NEGATIVE)
[2023-01-28 13:33] LABS: BASO # 0.1 10^3/uL (0.0-0.2); BASO % 1.3 % (0.0-1.0); EOS # 0.2 10^3/uL (0.0-0.5); EOS % 4.8 % (0.0-3.0); HEMATOCRIT 36.2 % (36.0-47.0); HEMOGLOBIN 11.4 g/dl (12.0-15.5); LYMPH # 1.2 10^3/uL (1.5-5.0); LYMPH % 29.5 % (24.0-44.0); MEAN CORPUSCULAR HEMOGLOBIN 28.2 pg (27.0-33.0); MEAN CORPUSCULAR HGB CONC 31.5 g/dl (32.0-36.5); MEAN CORPUSCULAR VOLUME 89.6 fl (80.0-96.0); MONO # 0.4 10^3/uL (0.0-0.8); MONO % 10.4 % (2.0-8.0); NEUTROPHILS # 2.1 10^3/uL (1.5-8.5); NEUTROPHILS % 53.7 % (36.0-66.0); PLATELET COUNT, AUTOMATED 274 10^3/uL (150-450); RED BLOOD COUNT 4.04 10^6/uL (4.00-5.40); WHITE BLOOD COUNT 3.9 10^3/uL (4.0-10.0)
[2023-01-28 14:08] LABS: BLOOD UREA NITROGEN 16 MG/DL (9-23); CALCIUM LEVEL 8.8 MG/DL (8.3-10.6); CARBON DIOXIDE LEVEL 26 MMOL/L (20-31); CHLORIDE LEVEL 109 MMOL/L (98-107); CK-MB VALUE MASS 2.5 NG/ML (<3.6); CPK CREATINE PHOSPHOKINASE 229 U/L (34-145); CREATININE FOR GFR 0.98 MG/DL (0.55-1.30); GLOMERULAR FILTRATION RATE > 60.0 (>45); GLUCOSE, FASTING 98 MG/DL (74-106); MB/CK RELATIVE INDEX 1.09 (< OR =4); POTASSIUM SERUM 4.4 MMOL/L (3.5-5.1); SODIUM LEVEL 143 MMOL/L (136-145)
[2023-01-28] MEDS ORDERED: ACETAMINOPHEN 500 MG TAB PO ONE (14:30)
[2023-01-28 14:46] VITALS: BP 158/77; TEMP 97.8; O2SAT 100
[2023-02-02] MEDS ORDERED: XALA0.007 (07:49)
[2023-02-02] MEDS ORDERED: OMEP-173 PO (07:49)
[2023-02-02] MEDS ORDERED: DICY-61 PO (07:49)
== END 2023-01-28 14:54 | disposition home or self-care (01) ==
LOC: M ED 12:00
DX: R05.9 Cough, unspecified (principal); R51.9 Headache, unspecified; R09.81 Nasal congestion; I25.10 Atherosclerotic heart disease of native coronary artery without angina pectoris; E78.5 Hyperlipidemia, unspecified; K21.9 Gastro-esophageal reflux disease without esophagitis; Z98.84 Bariatric surgery status

== ENCOUNTER 2023-02-16 10:48 | Day surgery (SDC) | payer MEDICARE, OTHER ==
[~2023-02-16] VITALS: Ht 167.6 cm; Wt 79.4 kg
[~2023-02-16 10:48] MED LIST changes: -CEFD300C41 PO; +CEFD300C42 PO; +DICY-61 PO; +NS 1,000 ML IV ONE; +OMEP-173 PO; +XALA0.007
[2023-02-16] MEDS ORDERED: fentaNYL 100 MCG/2 ML INJECTION As Ordered ONE (11:55)
[2023-02-16] MEDS ORDERED: propofoL 200 MG/20 ML VIAL As Ordered ONE (12:08)
[2023-02-16] MEDS ORDERED: LIDOCAINE 2% 100MG/5ML SDV (FOR ANES.) As Ordered ONE (12:08)
[2023-02-16 12:42] VITALS: TEMP 97.4
[2023-02-16 13:00] VITALS: BP 140/65; O2SAT 99
== END 2023-02-16 13:00 | disposition home or self-care (01) ==
LOC: M OPP 10:48
PROVIDERS: ATTEND Internal Medicine Gastroenterology
DX: D12.2 Benign neoplasm of ascending colon (principal); K63.5 Polyp of colon; K57.30 Diverticulosis of large intestine without perforation or abscess without bleeding; K64.8 Other hemorrhoids; K58.0 Irritable bowel syndrome with diarrhea; K44.9 Diaphragmatic hernia without obstruction or gangrene; Z98.0 Intestinal bypass and anastomosis status; K20.90 Esophagitis, unspecified without bleeding; Z79.83 Long term (current) use of bisphosphonates; Z79.899 Other long term (current) drug therapy
CPT/HCPCS: 43239; 45380; 45385; 88305; J3010

== ENCOUNTER → 2023-04-05 | Outpatient (REF) ==
[~2023-04-05] MED LIST changes: -NS 1,000 ML IV ONE
== END ==
LOC: M LAB 10:24
PROVIDERS: ATTEND Nurse Practitioner Adult Health
DX: Z02.89 Encounter for other administrative examinations (principal)

== ENCOUNTER 2023-04-16 15:29 | Emergency (ER) | payer MEDICARE, OTHER ==
[~2023-04-16] VITALS: Ht 170.2 cm; Wt 84.0 kg
[2023-04-16 15:31] VITALS: BP 145/68; TEMP 98.1; O2SAT 97
== END 2023-04-16 15:55 | disposition left against medical advice (07) ==
LOC: M ED 15:29
DX: Z53.21 Procedure and treatment not carried out due to patient leaving prior to being seen by health care provider (principal)

== ENCOUNTER 2023-04-16 18:50 | Emergency (ER) | payer MEDICARE, OTHER ==
[~2023-04-16] VITALS: Ht 170.2 cm; Wt 86.2 kg
[2023-04-16 18:50] VITALS: BP 141/87; TEMP 98.6; O2SAT 98
== END 2023-04-16 20:39 | disposition left against medical advice (07) ==
LOC: M ED 18:50
DX: Z53.21 Procedure and treatment not carried out due to patient leaving prior to being seen by health care provider (principal)

== ENCOUNTER → 2023-05-08 | Outpatient (REF) ==
[~2023-05-08] MED LIST changes: +CEFD1CAP9 PO; -CEFD300C42 PO
[2023-05-08 09:26] LABS: RSV AMPLIFICATION NEGATIVE (NEGATIVE)
== END ==
LOC: M EMP 07:54
PROVIDERS: ATTEND Family Medicine
DX: Z20.828 Contact with and (suspected) exposure to other viral communicable diseases (principal)

== ENCOUNTER → 2023-05-24 | Outpatient (REF) | LOC: M EMP 11:42 | PROVIDERS: ATTEND Family Medicine | DX: Z11.52 Encounter for screening for COVID-19 (principal) ==

== ENCOUNTER 2023-07-02 08:29 | Emergency (ER) | payer MEDICARE, OTHER ==
[~2023-07-02] VITALS: Ht 170.2 cm; Wt 82.4 kg
[2023-07-02] MEDS ORDERED: HYDR50TA70 (08:46)
[2023-07-02 09:54] LABS: BASO % 0.9 % (0.0-1.0); EOS # 0.2 10^3/uL (0.0-0.5); EOS % 7.2 % (0.0-3.0); HEMATOCRIT 36.4 % (36.0-47.0); LYMPH # 1.1 10^3/uL (1.5-5.0); LYMPH % 34.1 % (24.0-44.0); MEAN CORPUSCULAR HEMOGLOBIN 29.3 pg (27.0-33.0); MEAN CORPUSCULAR VOLUME 88.8 fl (80.0-96.0); MONO # 0.3 10^3/uL (0.0-0.8); MONO % 8.1 % (2.0-8.0); NEUTROPHILS # 1.6 10^3/uL (1.5-8.5); NEUTROPHILS % 49.7 % (36.0-66.0); PLATELET COUNT, AUTOMATED 252 10^3/uL (150-450); WHITE BLOOD COUNT 3.2 10^3/uL (4.0-10.0)
[2023-07-02 10:20] LABS: LIPASE 46 U/L (12-53)
[2023-07-02 10:22] LABS: ALBUMIN 3.5 G/DL (3.2-5.2); ALKALINE PHOSPHATASE 73 U/L (46-116); ALT/SGPT 24 U/L (7.0-40); AST/SGOT 22 U/L (<34); BILIRUBIN,DIRECT < 0.1 MG/DL (<0.4); BILIRUBIN,TOTAL 0.5 MG/DL (0.3-1.2); BLOOD UREA NITROGEN 12 MG/DL (9-23); CALCIUM LEVEL 8.6 MG/DL (8.3-10.6); CARBON DIOXIDE LEVEL 27 MMOL/L (20-31); CHLORIDE LEVEL 110 MMOL/L (98-107); CREATININE FOR GFR 0.73 MG/DL (0.55-1.30); GLOMERULAR FILTRATION RATE > 60.0 (>45); GLUCOSE, FASTING 111 MG/DL (74-106); POTASSIUM SERUM 4.1 MMOL/L (3.5-5.1); SODIUM LEVEL 142 MMOL/L (136-145); TOTAL PROTEIN 6.4 G/DL (5.7-8.2)
[2023-07-02] MEDS ORDERED: OYST1TAB PO (10:25)
[2023-07-02] MEDS ORDERED: VITA100093 PO (10:25)
[2023-07-02] MEDS ORDERED: MAGN580T4 PO (10:25)
[2023-07-02] MEDS ORDERED: HOME MED LIST COMPLETE! XX SCH (10:25)
[2023-07-02] MEDS ORDERED: MULT-40 PO (10:25)
[2023-07-02] MEDS: NS 1,000 ML IV ONE (11:33)
[2023-07-02] MEDS: ONDANSETRON 4MG 2ML VIAL IV ONE (11:33)
[2023-07-02] MEDS: ACETAMINOPHEN *IV* 1,000 MG in IV 1 EA IV ONE (11:33)
[2023-07-02] MEDS ORDERED: ISOVUE-370 76% 100ML VIAL As Ordered ONE (11:45)
[2023-07-02] MEDS ORDERED: HYDR-3713 PO (15:27)
[2023-07-02] MEDS: KETOROLAC 30 MG/ML 1ML VIAL IV ONE (15:36)
[2023-07-02 15:52] VITALS: BP 180/91; TEMP 97.6; O2SAT 99
[2023-07-05 14:11] LABS: HE4 57.5 pmol/L (0.0-96.5)
== END 2023-07-02 15:53 | disposition home or self-care (01) ==
LOC: M ED 08:29
DX: N28.1 Cyst of kidney, acquired (principal); R10.9 Unspecified abdominal pain; N83.202 Unspecified ovarian cyst, left side; K21.9 Gastro-esophageal reflux disease without esophagitis; Z88.1 Allergy status to other antibiotic agents; Z79.1 Long term (current) use of non-steroidal anti-inflammatories (NSAID); Z79.810 Long term (current) use of selective estrogen receptor modulators (SERMs); Z79.899 Other long term (current) drug therapy
CPT/HCPCS: 74177; 76830; 76856; 80048; 80076; 81001; 83605; 83690; 85025; 86304; 86305; 87086; 93005; 93976; 96365; 96366; 96375; 99284; J0131; J1885; J2405; Q9967

== ENCOUNTER → 2023-07-30 | Outpatient (CLI) | payer MEDICARE ==
[~2023-07-30] MED LIST changes: +HYDR-3713 PO; +HYDR50TA70; +MAGN580T4 PO; +MULT-40 PO; +OYST1TAB PO; +VITA100093 PO
== END ==
LOC: M PLAIMG 11:11
PROVIDERS: ATTEND Nurse Practitioner Family
DX: R41.89 Other symptoms and signs involving cognitive functions and awareness (principal)

== ENCOUNTER → 2023-07-30 | Outpatient (CLI) | payer MEDICARE ==
[2023-07-30 17:55] LABS: HEMATOCRIT 34.7 % (36.0-47.0); HEMOGLOBIN 11.2 g/dl (12.0-15.5); MEAN CORPUSCULAR HEMOGLOBIN 28.9 pg (27.0-33.0); MEAN CORPUSCULAR HGB CONC 32.3 g/dl (32.0-36.5); MEAN CORPUSCULAR VOLUME 89.7 fl (80.0-96.0); PLATELET COUNT, AUTOMATED 268 10^3/uL (150-450); RED BLOOD COUNT 3.87 10^6/uL (4.00-5.40); WHITE BLOOD COUNT 4.6 10^3/uL (4.0-10.0)
[2023-07-30 18:28] LABS: ALBUMIN 3.5 G/DL (3.2-5.2); ALKALINE PHOSPHATASE 69 U/L (46-116); ALT/SGPT 18 U/L (7.0-40); AST/SGOT 19 U/L (<34); BILIRUBIN,TOTAL 0.4 MG/DL (0.3-1.2); BLOOD UREA NITROGEN 18 MG/DL (9-23); CALCIUM LEVEL 8.4 MG/DL (8.3-10.6); CARBON DIOXIDE LEVEL 29 MMOL/L (20-31); CHLORIDE LEVEL 109 MMOL/L (98-107); CREATININE FOR GFR 0.85 MG/DL (0.55-1.30); GLOMERULAR FILTRATION RATE > 60.0 (>45); GLUCOSE, FASTING 83 MG/DL (74-106); POTASSIUM SERUM 4.4 MMOL/L (3.5-5.1); SODIUM LEVEL 143 MMOL/L (136-145)
[2023-07-30 18:47] LABS: CA19-9 TUMOR MARKER,CARBOHYDRA 37.7 U/ML (<35.0)
== END ==
LOC: M PLALAB 15:47
PROVIDERS: ATTEND Specialist
DX: N83.202 Unspecified ovarian cyst, left side (principal); Z79.899 Other long term (current) drug therapy; D39.12 Neoplasm of uncertain behavior of left ovary; R97.8 Other abnormal tumor markers

== ENCOUNTER 2023-09-25 06:12 | Day surgery (SDC) | payer MEDICARE ==
[~2023-09-25] VITALS: Ht 167.6 cm; Wt 79.4 kg
[~2023-09-25 06:12] MED LIST changes: +LR 1,000 ML IV SCH; +VALA1TAB5 PO
[2023-09-25] MEDS ORDERED: ONDANSETRON 4MG 2ML VIAL As Ordered ONE (06:49)
[2023-09-25] MEDS ORDERED: ROCURONIUM BROMIDE 50MG/5ML VIAL As Ordered ONE (06:49)
[2023-09-25] MEDS ORDERED: SUGAMMADEX SODIUM 500 MG/5 ML VIAL (BRIDION) As Ordered ONE (06:49)
[2023-09-25] MEDS ORDERED: fentaNYL 100 MCG/2 ML INJECTION As Ordered ONE (06:49)
[2023-09-25] MEDS ORDERED: LIDOCAINE 2% 100MG/5ML SDV (FOR ANES.) As Ordered ONE (06:49)
[2023-09-25] MEDS ORDERED: propofoL 500 MG/50 ML VIAL As Ordered ONE (06:49)
[2023-09-25] MEDS ORDERED: propofoL 200 MG/20 ML VIAL As Ordered ONE (06:49)
[2023-09-25] MEDS ORDERED: ACETAMINOPHEN 1000MG 100ML IV BAG As Ordered ONE (06:49)
[2023-09-25] MEDS ORDERED: dexmedeTOMIDine (4MCG/ML)200MCG/50ML BTL (PRECEDEX) As Ordered ONE (06:50)
[2023-09-25] MEDS ORDERED: HYDROmorphone HCL 2MG/ML 1ML VIAL As Ordered ONE (08:12)
[2023-09-25] MEDS ORDERED: LR 1,000 ML IV SCH ×2 (08:40→09:20)
[2023-09-25] MEDS ORDERED: ONDANSETRON 4MG 2ML VIAL IV PRN (08:40)
[2023-09-25] MEDS: fentaNYL 100 MCG/2 ML INJECTION IV PRN (09:03)
[2023-09-25] MEDS ORDERED: IBUP-1022 PO (09:05)
[2023-09-25] MEDS ORDERED: OXYC1TAB23 PO (09:06)
[2023-09-25] MEDS: oxyCODONE 5MG TAB PO PRN (09:12)
[2023-09-25] MEDS: HYDROMORPHONE HCL 0.5 MG/ 0.5 ML SYRINGE IV PRN (09:15)
[2023-09-25] MEDS ORDERED: PERCOCET 5MG/325MG TAB PO PRN (09:20)
[2023-09-25 09:57] VITALS: BP 133/63; TEMP 96.7; O2SAT 100
[2023-09-25] MEDS: METOCLOPRAMIDE INJ 10MG/2ML VIAL IV ONE (10:27)
== END 2023-09-25 11:45 | disposition home or self-care (01) ==
LOC: M SDC 06:12
PROVIDERS: ATTEND Specialist
DX: D27.1 Benign neoplasm of left ovary (principal); N83.292 Other ovarian cyst, left side; K58.9 Irritable bowel syndrome, unspecified; K21.9 Gastro-esophageal reflux disease without esophagitis; Z79.899 Other long term (current) drug therapy; Z98.84 Bariatric surgery status; Z87.19 Personal history of other diseases of the digestive system; Z88.1 Allergy status to other antibiotic agents; Z87.891 Personal history of nicotine dependence
CPT/HCPCS: 58661; 88305; J0131; J0665; J1100; J1170; J2405; J2765; J3010

== ENCOUNTER 2023-12-20 12:05 | Emergency (ER) | payer MEDICARE, OTHER ==
[~2023-12-20] VITALS: Ht 170.2 cm; Wt 78.5 kg
[2023-12-20 12:05] VITALS: BP 164/72; TEMP 98.5; O2SAT 97
[~2023-12-20 12:05] MED LIST changes: +IBUP-1022 PO; -LR 1,000 ML IV SCH; +OXYC1TAB23 PO
[2023-12-20 13:52] LABS: BASO # 0.1 10^3/uL (0.0-0.2); BASO % 0.6 % (0.0-1.0); EOS # 0.1 10^3/uL (0.0-0.5); EOS % 1.3 % (0.0-3.0); HEMATOCRIT 37.8 % (36.0-47.0); HEMOGLOBIN 12.3 g/dl (12.0-15.5); LYMPH # 1.2 10^3/uL (1.5-5.0); LYMPH % 12.6 % (24.0-44.0); MEAN CORPUSCULAR HEMOGLOBIN 29.1 pg (27.0-33.0); MEAN CORPUSCULAR HGB CONC 32.5 g/dl (32.0-36.5); MEAN CORPUSCULAR VOLUME 89.4 fl (80.0-96.0); MONO # 0.7 10^3/uL (0.0-0.8); MONO % 7.5 % (2.0-8.0); NEUTROPHILS # 7.4 10^3/uL (1.5-8.5); NEUTROPHILS % 77.7 % (36.0-66.0); PLATELET COUNT, AUTOMATED 260 10^3/uL (150-450); RED BLOOD COUNT 4.23 10^6/uL (4.00-5.40); WHITE BLOOD COUNT 9.5 10^3/uL (4.0-10.0)
[2023-12-20 14:12] LABS: CK-MB VALUE MASS 2.2 NG/ML (<3.6)
[2023-12-20 14:14] LABS: ALBUMIN 3.8 G/DL (3.2-5.2); ALKALINE PHOSPHATASE 80 U/L (46-116); ALT/SGPT 24 U/L (7.0-40); AST/SGOT 19 U/L (<34); BILIRUBIN,DIRECT 0.2 MG/DL (<0.4); BILIRUBIN,TOTAL 0.7 MG/DL (0.3-1.2); BLOOD UREA NITROGEN 16 MG/DL (9-23); CALCIUM LEVEL 9.2 MG/DL (8.3-10.6); CARBON DIOXIDE LEVEL 26 MMOL/L (20-31); CHLORIDE LEVEL 108 MMOL/L (98-107); CPK CREATINE PHOSPHOKINASE 183 U/L (34-145); GLOMERULAR FILTRATION RATE > 60.0 (>45); GLUCOSE, FASTING 89 MG/DL (74-106); POTASSIUM SERUM 4.1 MMOL/L (3.5-5.1); SODIUM LEVEL 142 MMOL/L (136-145); TOTAL PROTEIN 6.5 G/DL (5.7-8.2)
== END 2023-12-20 15:05 | disposition left against medical advice (07) ==
LOC: M ED 12:05
DX: Z53.21 Procedure and treatment not carried out due to patient leaving prior to being seen by health care provider (principal)

== ENCOUNTER → 2024-01-30 | Outpatient (REF) | payer MEDICARE ==
[~2024-01-30] MED LIST changes: +IRON1TAB2 PO; +PANT40TA29
== END ==
LOC: M LAB REF 16:37
PROVIDERS: ATTEND Nurse Practitioner Family
DX: R10.30 Lower abdominal pain, unspecified (principal)

== ENCOUNTER 2024-01-31 18:05 | Emergency (ER) | payer MEDICARE | END 2024-01-31 18:20 | disposition left against medical advice (07) | LOC: M ED 18:20 | DX: Z53.21 Procedure and treatment not carried out due to patient leaving prior to being seen by health care provider (principal) ==

== ENCOUNTER → 2024-02-01 | Outpatient (CLI) | payer MEDICARE | LOC: M LAB 12:02 | PROVIDERS: ATTEND Nurse Practitioner Family | DX: J15.9 Unspecified bacterial pneumonia (principal); J06.9 Acute upper respiratory infection, unspecified ==

== ENCOUNTER 2024-02-16 18:59 | Emergency (ER) | payer MEDICARE ==
[~2024-02-16] VITALS: Ht 170.2 cm; Wt 78.8 kg
[2024-02-16 19:01] VITALS: BP 181/82; TEMP 97.5; O2SAT 97
== END 2024-02-16 19:09 | disposition left against medical advice (07) ==
LOC: M ED 18:59
DX: Z53.21 Procedure and treatment not carried out due to patient leaving prior to being seen by health care provider (principal)

== ENCOUNTER 2024-02-17 10:08 | Emergency (ER) | payer MEDICARE ==
[~2024-02-17] VITALS: Ht 170.2 cm; Wt 78.5 kg
[2024-02-17 10:11] VITALS: BP 157/73; TEMP 97; O2SAT 98
== END 2024-02-17 12:48 | disposition left against medical advice (07) ==
LOC: M ED 10:08
DX: Z53.21 Procedure and treatment not carried out due to patient leaving prior to being seen by health care provider (principal)

== ENCOUNTER 2024-06-23 17:56 | Emergency (ER) | payer MEDICARE ==
[~2024-06-23] VITALS: Ht 167.6 cm; Wt 75.0 kg
[~2024-06-23 17:56] MED LIST changes: -CYCL5TAB PO; +CYCL5TAB4 PO
[2024-06-23 18:42] LABS: BASO % 0.5 % (0.0-1.0); EOS # 0.1 10^3/uL (0.0-0.5); EOS % 0.9 % (0.0-3.0); HEMATOCRIT 37.7 % (36.0-47.0); HEMOGLOBIN 13.1 g/dl (12.0-15.5); LYMPH # 0.7 10^3/uL (1.5-5.0); LYMPH % 9.1 % (24.0-44.0); MEAN CORPUSCULAR HEMOGLOBIN 32.1 pg (27.0-33.0); MEAN CORPUSCULAR HGB CONC 34.7 g/dl (32.0-36.5); MEAN CORPUSCULAR VOLUME 92.4 fl (80.0-96.0); MONO # 0.4 10^3/uL (0.0-0.8); MONO % 5.3 % (2.0-8.0); NEUTROPHILS # 6.7 10^3/uL (1.5-8.5); NEUTROPHILS % 83.9 % (36.0-66.0); PLATELET COUNT, AUTOMATED 273 10^3/uL (150-450); RED BLOOD COUNT 4.08 10^6/uL (4.00-5.40)
[2024-06-23] MEDS ORDERED: ISOVUE-370 76% 100ML VIAL As Ordered ONE (18:54)
[2024-06-23 18:57] LABS: INR 0.88; PROTHROMBIN TIME 12.3 SECONDS (12.5-14.5)
[2024-06-23 19:05] LABS: CK-MB VALUE MASS 1.2 NG/ML (<3.6)
[2024-06-23 19:07] LABS: CPK CREATINE PHOSPHOKINASE 151 U/L (34-145); MB/CK RELATIVE INDEX 0.79 (< OR =4)
[2024-06-23 19:08] LABS: BLOOD UREA NITROGEN 12 MG/DL (9-23); CALCIUM LEVEL 9.7 MG/DL (8.3-10.6); CARBON DIOXIDE LEVEL 25 MMOL/L (20-31); CHLORIDE LEVEL 106 MMOL/L (98-107); CREATININE FOR GFR 0.91 MG/DL (0.55-1.30); GLOMERULAR FILTRATION RATE > 60.0 (>45); GLUCOSE, FASTING 108 MG/DL (74-106); SODIUM LEVEL 142 MMOL/L (136-145)
[2024-06-23 20:30] VITALS: TEMP 101.1
[2024-06-23 20:56] VITALS: O2SAT 95
[2024-06-23] MEDS: ACETAMINOPHEN 325 MG TAB PO ONE (21:16)
[2024-06-23 21:26] LABS: KETONE, URINE AUTO RFX NEGATIVE (NEGATIVE); LEUKOCYTE ESTERASE UR AUTO RFX NEGATIVE (NEGATIVE); MUCUS, URINE RFX SMALL (NEGATIVE); NITRITE, URINE AUTO RFX NEGATIVE (NEGATIVE); RBC, URINE AUTO RFX 1 /HPF (0-3); SQUAM EPITHELIAL CELL UR AURFX 1 /HPF (0-6); WBC, URINE AUTO RFX 1 /HPF (0-3)
[2024-06-23 22:00] VITALS: BP 139/63; O2SAT 96
[2024-06-23] MEDS ORDERED: OSEL75CA PO (22:12)
[2024-06-23] MEDS ORDERED: BENZ200C70 PO (22:15)
[2024-06-23] MEDS: OSELTAMIVIR PHOSPHATE 75 MG CAP PO ONE (22:15)
[2024-06-23] MEDS ORDERED: ONDA-282 PO (22:15)
== END 2024-06-23 22:20 | disposition home or self-care (01) ==
LOC: M ED 17:56
DX: J09.X2 Influenza due to identified novel influenza A virus with other respiratory manifestations (principal); Z79.1 Long term (current) use of non-steroidal anti-inflammatories (NSAID); Z79.899 Other long term (current) drug therapy; Z79.810 Long term (current) use of selective estrogen receptor modulators (SERMs)
CPT/HCPCS: 36415; 71045; 71275; 80047; 80048; 81001; 82550; 82553; 84484; 85025; 85610; 87040; 87486; 87581; 87633; 87798; 93005; 93041; 94760; 99285; Q9967

== ENCOUNTER → 2024-06-29 | Outpatient (CLI) | payer MEDICARE ==
[~2024-06-29] MED LIST changes: +BENZ200C70 PO; +ONDA-282 PO; +OSEL75CA PO
== END ==
LOC: M RAD 15:17
PROVIDERS: ATTEND Student in an Organized Health Care Education/Training Program
DX: R06.02 Shortness of breath (principal)

== ENCOUNTER 2024-09-20 18:42 | Emergency (ER) | payer MEDICARE ==
[~2024-09-20] VITALS: Ht 167.6 cm; Wt 76.0 kg
[2024-09-20 18:45] VITALS: BP 170/80; TEMP 97; O2SAT 99
== END 2024-09-20 20:40 | disposition left against medical advice (07) ==
LOC: M ED 18:42
DX: Z53.21 Procedure and treatment not carried out due to patient leaving prior to being seen by health care provider (principal)

== ENCOUNTER 2025-01-25 11:28 | Emergency (ER) | payer MEDICARE ==
[~2025-01-25] VITALS: Ht 167.6 cm; Wt 74.5 kg
[~2025-01-25 11:28] MED LIST changes: -IBUP-1022 PO; +IBUP600T42 PO; +LIDO1ADH93 TOP; -LIDO5DIS41 TOP
[2025-01-25 12:12] LABS: KETONE, URINE AUTO RFX NEGATIVE (NEGATIVE); MUCUS, URINE RFX SMALL (NEGATIVE); NITRITE, URINE AUTO RFX NEGATIVE (NEGATIVE); RBC, URINE AUTO RFX 1 /HPF (0-3); SQUAM EPITHELIAL CELL UR AURFX 5 /HPF (0-6); WBC, URINE AUTO RFX 3 /HPF (0-3)
[2025-01-25 12:13] LABS: LEUKOCYTE ESTERASE UR AUTO RFX TRACE (NEGATIVE)
[2025-01-25 12:39] LABS: BASO # 0.1 10^3/uL (0.0-0.2); BASO % 0.9 % (0.0-1.0); EOS # 0.2 10^3/uL (0.0-0.5); EOS % 3.7 % (0.0-3.0); LYMPH # 1.1 10^3/uL (1.5-5.0); LYMPH % 19.1 % (24.0-44.0); MONO # 0.5 10^3/uL (0.0-0.8); MONO % 8.2 % (2.0-8.0); NEUTROPHILS # 3.9 10^3/uL (1.5-8.5); NEUTROPHILS % 67.9 % (36.0-66.0); PLATELET COUNT, AUTOMATED 248 10^3/uL (150-450)
[2025-01-25] MEDS: NS (Normal Saline) 0.9% 1,000 ML IV ONE (12:46)
[2025-01-25] MEDS: ONDANSETRON 4MG 2ML VIAL IV ONE (12:46)
[2025-01-25] MEDS: PANTOPRAZOLE 40MG VIAL IV ONE (12:46)
[2025-01-25] MEDS: KETOROLAC 30 MG/ML 1 ML VIAL IV ONE (12:47)
[2025-01-25 13:03] LABS: ALT/SGPT 31.0 U/L (7.0-40); AST/SGOT 29.0 U/L (<34); CALCIUM LEVEL 9.3 MG/DL (8.3-10.6); CARBON DIOXIDE LEVEL 27.0 MMOL/L (20-31); CHLORIDE LEVEL 108.0 MMOL/L (98-107); CREATININE FOR GFR 0.85 MG/DL (0.55-1.30); GLOMERULAR FILTRATION RATE 75.5 (>45); POTASSIUM SERUM 4.3 MMOL/L (3.5-5.1); SODIUM LEVEL 145.0 MMOL/L (136-145)
[2025-01-25] MEDS: GASTROGRAFIN SOLUTION 30ML PO SCH (13:04)
[2025-01-25] MEDS ORDERED: ISOVUE-370 76% 100 ML VIAL As Ordered ONE (14:26)
[2025-01-25] MEDS: ACETAMINOPHEN *IV* 1,000 MG in IV 1 EA IV ONE (14:51)
[2025-01-25 15:55] VITALS: TEMP 97.9; O2SAT 98
[2025-01-25 15:59] VITALS: BP 160/82
[2025-01-25] MEDS ORDERED: MACR100C43 PO (16:01)
[2025-01-25] MEDS ORDERED: PYRI1TAB5 PO (16:01)
[2025-01-25] MEDS: PHENAZOPYRIDINE 100 MG TAB PO ONE (16:07)
[2025-01-25] MEDS: NITROFURANTOIN 100 MG CAP PO ONE (16:07)
== END 2025-01-25 16:16 | disposition home or self-care (01) ==
LOC: M ED 11:28
DX: N30.00 Acute cystitis without hematuria (principal); K21.9 Gastro-esophageal reflux disease without esophagitis; Z79.1 Long term (current) use of non-steroidal anti-inflammatories (NSAID); Z79.899 Other long term (current) drug therapy; Z79.810 Long term (current) use of selective estrogen receptor modulators (SERMs)
CPT/HCPCS: 74177; 80048; 80076; 81001; 83605; 83690; 85025; 87086; 96361; 96365; 96375; 99284; J0131; J1885; J2405; J2470; Q9963; Q9967